=== PATIENT | female | born 1940 | race Caucasian/White ===

== ENCOUNTER 2016-04-19 11:04 | Emergency (ER) | payer MEDICARE ==
[2016-04-19 11:14] VITALS: RESP 16
--- NOTE | 2016-04-19 11:47 | ED ---
General Adult HPI - General Chief complaint: Altered Mental Status Stated complaint: altered mental status Time Seen by Provider: 04/19/16 11:10 Source: family, RN notes reviewed Mode of arrival: ambulatory Limitations: no limitations - History of Present Illness Initial comments: This is a 75-year-old female presents emergency Department with family. Patient herself is only alert and oriented 2 she does not think she needs to be her and she has no complaints. Family brings her in because they have noticed over the last few months her hygiene is deteriorating in the patient's more and more confused. At time she is talking but a dog that she does not have and another time she's talking about seeing her parents haven't been for 20 years. Family states that they moved her recently from her apartment to her son's house because her apartment was not being kept up at all and the hygiene was terrible. Patient has not complained about any physical complaints. However family states she gets very upset because she wants go back and live on her own at her apartment. - Related Data Previous Rx's Medication Instructions Recorded ALPRAZolam [Xanax] 0.25 mg PO TID PRN #15 tab 04/19/16 Allergies Allergy/AdvReac Type Severity Reaction Status Date / Time Penicillins Allergy Unknown Verified 04/19/16 12:07 Childhood Review of Systems ROS Statement: Those systems with pertinent positive or pertinent negative responses have been documented in the HPI. ROS Other: All systems not noted in ROS Statement are negative. Past Medical History Additional Past Medical History / Comment(s): Alzheimer's History of Any Multi-Drug Resistant Organisms: None Reported Past Surgical History: Joint Replacement Additional Past Surgical History / Comment(s): bilateral knee replacement Past Psychological History: No Psychological Hx Reported Smoking Status: Never smoker Past Alcohol Use History: None Reported Past Drug Use History: None Reported General Exam - General Exam Comments Initial Comments: GENERAL: Patient is well-developed and well-nourished. Patient is nontoxic and well- hydrated and is in no acute distress. ENT: Neck is soft and supple. No significant lymphadenopathy is noted. Oropharynx is clear. Moist mucous membranes. Neck has full range of motion without eliciting any pain. EYES: The sclera were anicteric and conjunctiva were pink and moist. Extraocular movements were intact and pupils were equal round and reactive to light. Eyelids were unremarkable. PULMONARY: Unlabored respirations. Good breath sounds bilaterally. No audible rales rhonchi or wheezing was noted. CARDIOVASCULAR: There is a regular rate and rhythm without any murmurs gallops or rubs. ABDOMEN: Soft and nontender with normal bowel sounds. No palpable organomegaly was noted. There is no palpable pulsatile mass. SKIN: Skin is clear with no lesions or rashes and otherwise unremarkable. NEUROLOGIC: Patient is alert and oriented 2. Cranial nerves II through XII are grossly intact. Motor and sensory are also intact. Normal speech, volume and content. Symmetrical smile. MUSCULOSKELETAL: Normal extremities with adequate strength and full range of motion. No lower extremity swelling or edema. No calf tenderness. LYMPHATICS: No significant lymphadenopathy is noted PSYCHIATRIC: Normal psychiatric evaluation. Limitations: no limitations Course Vital Signs 04/19/16 11:10 Temperature 96.9 F L Pulse Rate 92 Respiratory 16 Rate Blood Pressure 163/73 O2 Sat by Pulse 99 Oximetry Medical Decision Making - Medical Decision Making Family spoke with social work and had some ideas as to how to get some better care for the patient. They did ask for something to relax her so she's not so agitated all the time because she does not live in her apartment. - Lab Data Result diagrams: 04/19/16 11:55 04/19/16 11:55 Lab Results 04/19/16 04/19/16 04/19/16 Range/Units 11:25 11:55 11:55 WBC 6.7 (3.8-10.6) k/uL RBC 4.59 (3.80-5.40) m/uL Hgb 13.8 (11.4-16.0) gm/dL Hct 41.1 (34.0-46.0) % MCV 89.5 (80.0-100.0) fL MCH 30.1 (25.0-35.0) pg MCHC 33.6 (31.0-37.0) g/dL RDW 13.5 (11.5-15.5) % Plt Count 257 (150-450) k/uL Neutrophils % 78 % Lymphocytes % 13 % Monocytes % 5 % Eosinophils % 1 % Basophils % 0 % Neutrophils # 5.3 (1.3-7.7) k/uL Lymphocytes # 0.9 L (1.0-4.8) k/uL Monocytes # 0.3 (0-1.0) k/uL Eosinophils # 0.1 (0-0.7) k/uL Basophils # 0.0 (0-0.2) k/uL PT (9.0-12.0) sec INR (<1.1) APTT (22.0-30.0) sec Sodium (137-145) mmol/L Potassium (3.5-5.1) mmol/L Chloride (98-107) mmol/L Carbon Dioxide (22-30) mmol/L Anion Gap mmol/L BUN (7-17) mg/dL Creatinine (0.52-1.04) mg/dL Est GFR (MDRD) Af Amer (>60 ml/min/1.73 sqM) Est GFR (MDRD) Non-Af (>60 ml/min/1.73 sqM) Glucose (74-99) mg/dL POC Glucose (mg/dL) (75-99) mg/dL POC Glu Tree [employer]eller Operator ID Calcium (8.4-10.2) mg/dL Total Bilirubin (0.2-1.3) mg/dL AST (14-36) U/L ALT (9-52) U/L Alkaline Phosphatase (38-126) U/L Total Creatine Kinase 215 H (30-135) U/L CK-MB (CK-2) 3.0 H* (0.0-2.4) ng/mL CK-MB (CK-2) Rel Index 1.4 Troponin I <0.012 (0.000-0.034) ng/mL Total Protein (6.3-8.2) g/dL Albumin (3.5-5.0) g/dL Urine Color Yellow Urine Appearance Clear (Clear) Urine pH 6.0 (5.0-8.0) Ur Specific [place] 1.009 (1.001-1.035) Urine Protein Negative (Negative) Urine Glucose (UA) Negative (Negative) Urine Ketones Trace H (Negative) Urine Blood Trace H (Negative) Urine Nitrate Negative (Negative) Urine Bilirubin Negative (Negative) Urine Urobilinogen <2.0 (<2.0) mg/dL Ur Leukocyte Esterase Trace H (Negative) Urine RBC 2 (0-5) /hpf Urine WBC 3 (0-5) /hpf Ur Squamous Epith Cells 2 (0-4) /hpf Urine Opiates Screen Not Detected (NotDetected) Ur Oxycodone Screen Not Detected (NotDetected) Urine Methadone Screen Not Detected (NotDetected) Ur Propoxyphene Screen Not Detected (NotDetected) Ur Barbiturates Screen Not Detected (NotDetected) U Tricyclic Antidepress Not Detected (NotDetected) Ur Phencyclidine Scrn Not Detected (NotDetected) Ur Amphetamines Screen Not Detected (NotDetected) U Methamphetamines Scrn Not Detected (NotDetected) U Benzodiazepines Scrn Not Detected (NotDetected) Urine Cocaine Screen Not Detected (NotDetected) U Marijuana (THC) Screen Not Detected (NotDetected) 04/19/16 04/19/16 04/19/16 Range/Units 11:55 11:55 12:05 WBC (3.8-10.6) k/uL RBC (3.80-5.40) m/uL Hgb (11.4-16.0) gm/dL Hct (34.0-46.0) % MCV (80.0-100.0) fL MCH (25.0-35.0) pg MCHC (31.0-37.0) g/dL RDW (11.5-15.5) % Plt Count (150-450) k/uL Neutrophils % % Lymphocytes % % Monocytes % % Eosinophils % % Basophils % % Neutrophils # (1.3-7.7) k/uL Lymphocytes # (1.0-4.8) k/uL Monocytes # (0-1.0) k/uL Eosinophils # (0-0.7) k/uL Basophils # (0-0.2) k/uL PT 10.8 (9.0-12.0) sec INR 1.1 (<1.1) APTT 22.9 (22.0-30.0) sec Sodium 140 (137-145) mmol/L Potassium 4.3 (3.5-5.1) mmol/L Chloride 104 (98-107) mmol/L Carbon Dioxide 26 (22-30) mmol/L Anion Gap 10 mmol/L BUN 8 (7-17) mg/dL Creatinine 0.73 (0.52-1.04) mg/dL Est GFR (MDRD) Af Amer >60 (>60 ml/min/1.73 sqM) Est GFR (MDRD) Non-Af >60 (>60 ml/min/1.73 sqM) Glucose 134 H (74-99) mg/dL POC Glucose (mg/dL) 126 H (75-99) mg/dL POC Glu [employer] Operator Milagros Dobbins Calcium 9.5 (8.4-10.2) mg/dL Total Bilirubin 0.7 (0.2-1.3) mg/dL AST 28 (14-36) U/L ALT 38 (9-52) U/L Alkaline Phosphatase 84 (38-126) U/L Total Creatine Kinase (30-135) U/L CK-MB (CK-2) (0.0-2.4) ng/mL CK-MB (CK-2) Rel Index Troponin I (0.000-0.034) ng/mL Total Protein 7.5 (6.3-8.2) g/dL Albumin 4.3 (3.5-5.0) g/dL Urine Color Urine Appearance (Clear) Urine pH (5.0-8.0) Ur Specific [place] (1.001-1.035) Urine Protein (Negative) Urine Glucose (UA) (Negative) Urine Ketones (Negative) Urine Blood (Negative) Urine Nitrate (Negative) Urine Bilirubin (Negative) Urine Urobilinogen (<2.0) mg/dL Ur Leukocyte Esterase (Negative) Urine RBC (0-5) /hpf Urine WBC (0-5) /hpf Ur Squamous Epith Cells (0-4) /hpf Urine Opiates Screen (NotDetected) Ur Oxycodone Screen (NotDetected) Urine Methadone Screen (NotDetected) Ur Propoxyphene Screen (NotDetected) Ur Barbiturates Screen (NotDetected) U Tricyclic Antidepress (NotDetected) Ur Phencyclidine Scrn (NotDetected) Ur Amphetamines Screen (NotDetected) U Methamphetamines Scrn (NotDetected) U Benzodiazepines Scrn (NotDetected) Urine Cocaine Screen (NotDetected) U Marijuana (THC) Screen (NotDetected) Disposition Clinical Impression: Dementia Disposition: HOME SELF-CARE Instructions: Dementia (ED) Prescriptions: ALPRAZolam [Xanax] 0.25 mg PO TID PRN #15 tab PRN Reason: Anxiety Referrals: Nonstaff,Physician [Primary Care Provider] - 1-2 days Time of Disposition: 14:08
[2016-04-19 12:09] LABS: Glucose,Whole Blood 126 mg/dL (75-99)
[2016-04-19 12:13] LABS: Appearance,Urine Clear (Clear); Bilirubin,Urine Negative (Negative); Glucose,Urine (UA) Negative (Negative); Ketones,Urine Trace (Negative); Leukocyte Esterase,Urine Trace (Negative); Nitrite,Urine Negative (Negative); Particle Count 2795; Protein,Urine Negative (Negative); RBC,Urine 2 /hpf (0-5); Specific Gravity,Urine 1.009 (1.001-1.035); Squamous Epithelial Cell,Urine 2 /hpf (0-4); UA Billing (MACRO vs. MICRO) MICRO; Urobilinogen,Urine <2.0 mg/dL (<2.0); WBC,Urine 3 /hpf (0-5)
[2016-04-19 12:15] LABS: Basophils % (A) 0 %; CH 30.1; CHCM 33.8; Eosinophils # (A) 0.1 k/uL (0-0.7); Eosinophils % (A) 1 %; HCT 41.1 % (34.0-46.0); HDW 2.42; HGB 13.8 gm/dL (11.4-16.0); Luc % (Auto) 3; Lymphocytes # (A) 0.9 k/uL (1.0-4.8); Lymphocytes % (A) 13 %; MCH 30.1 pg (25.0-35.0); MCHC 33.6 g/dL (31.0-37.0); MCV 89.5 fL (80.0-100.0); Mean Platelet Volume 8.3; Monocytes # (A) 0.3 k/uL (0-1.0); Monocytes % (A) 5 %; Neutrophils # (A) 5.3 k/uL (1.3-7.7); Neutrophils % (A) 78 %; RBC 4.59 m/uL (3.80-5.40); RDW 13.5 % (11.5-15.5); WBC 6.7 k/uL (3.8-10.6); WBC (Perox) 6.84
[2016-04-19 12:22] LABS: ALT 38 U/L (9-52); AST 28 U/L (14-36); Alkaline Phosphatase 84 U/L (38-126); Anion Gap 10 mmol/L; Blood Urea Nitrogen 8 mg/dL (7-17); Calcium 9.5 mg/dL (8.4-10.2); Carbon Dioxide 26 mmol/L (22-30); Chloride 104 mmol/L (98-107); Glucose 134 mg/dL (74-99); Non-African American GFR(MDRD) >60 (>60 ml/min/1.73 sqM); Potassium 4.3 mmol/L (3.5-5.1); Sodium 140 mmol/L (137-145); Total Bilirubin 0.7 mg/dL (0.2-1.3); Total Protein 7.5 g/dL (6.3-8.2)
[2016-04-19 12:33] LABS: Creatine Kinase 215 U/L (30-135)
[2016-04-19 12:36] LABS: INR 1.1 (<1.1); Partial Thromboplastin Time 22.9 sec (22.0-30.0); Prothrombin Time 10.8 sec (9.0-12.0)
[2016-04-19 12:46] LABS: Troponin I <0.012 ng/mL (0.000-0.034)
--- NOTE | 2016-04-19 12:58 | CT ---
EXAMINATION TYPE: CT brain wo con DATE OF EXAM: 04/19/2016 12:46 PM COMPARISON: NONE INDICATION: Altered mental changes DLP: 1054.2 mGycm, Automated exposure control for dose reduction was used. CONTRAST: None CT of the brain is performed utilizing 3 mm thick sections through the posterior fossa and 3 mm thick sections through the remaining calvarium. Study is performed within 24 hours of arrival to the hosp [facility]. No abnormal hyperdensity is present to suggest an acute intracranial hemorrhage. No mass lesion is evident. No acute infarcts are evident. Ventricles and sulci are appropriate for the patient age. Paranasal sinuses and mastoid air cells within the [id number] are clear. There is hyperostosis frontalis internus, normal variant. IMPRESSIONS: 1. No acute intracranial process.
--- NOTE | 2016-04-19 13:55 | XR ---
EXAMINATION TYPE: XR chest 2V DATE OF EXAM: 04/19/2016 1:47 PM COMPARISON: NONE HISTORY: Altered mental status TECHNIQUE: Frontal and lateral views of the chest are obtained. FINDINGS: There is no focal air space opacity, pleural effusion, or pneumothorax seen. The cardiac silhouette size is within normal limits. There are overlying cardiac leads. There is a spinal curva ture. The osseous structures are intact. IMPRESSION: No acute cardiopulmonary process.
[2016-04-19 14:21] VITALS: BP 165/79; PULSE 72; TEMP 97
== END 2016-04-19 14:20 | disposition home or self-care (01) ==
LOC: EC 11:04
DX: G30.9 Alzheimer's disease, unspecified (principal); F02.80 Dementia in other diseases classified elsewhere, unspecified severity, without behavioral disturbance, psychotic disturbance, mood disturbance, and anxiety; Z88.0 Allergy status to penicillin
CPT/HCPCS: 36415; 70450; 71020; 80053; 80306; 81001; 82550; 82553; 84484; 85025; 85610; 85730; 93005; 99285

== ENCOUNTER 2016-07-08 19:53 | Observation (INO) | payer MEDICARE, OTHER ==
[2016-07-08] MEDS ORDERED: KETOROLAC 30 MG/ML 1 ML VIAL IVP STA (21:22)
--- NOTE | 2016-07-08 21:49 | ED ---
Altered Mental Status HPI - General Chief Complaint: Altered Mental Status Stated Complaint: dementia Time Seen by Provider: 07/08/16 21:22 Source: patient, family Mode of arrival: ambulatory Limitations: altered mental status (Probable dementia) - History of Present Illness Initial Comments: History comes to me through the triage personnel, as the patient's family is not bedside. This patient reportedly is been more agitated at home, at times confrontational with family, and reportedly trying to obtain the patient's son' s weapons (guns or knife). At the moment only the patient is here and she denies complaints. She states that she feels well. She denies any pain. She denies dyspnea. See the rest of the review of systems. The patient does state that she is here with her who "will probably lie about me." MD Complaint: confusion -: unknown Consistency of Symptoms: getting worse - Related Data Previous Rx's Medication Instructions Recorded ALPRAZolam [Xanax] 0.25 mg PO TID PRN #15 tab 04/19/16 Allergies Allergy/AdvReac Type Severity Reaction Status Date / Time Penicillins Allergy Unknown Verified 04/19/16 12:07 Childhood Review of Systems ROS Statement: Those systems with pertinent positive or pertinent negative responses have been documented in the HPI. ROS Other: All systems not noted in ROS Statement are negative. Limitations: ROS unobtainable due to patients medical condition (Probable dementia) Respiratory: Denies: cough, dyspnea Cardiovascular: Denies: chest pain Gastrointestinal: Denies: abdominal pain, vomiting Genitourinary: Denies: dysuria Musculoskeletal: Denies: back pain Neurological: Denies: headache Psychiatric: Denies: homicidal thoughts, suicidal thoughts Past Medical History Additional Past Medical History / Comment(s): Alzheimer's History of Any Multi-Drug Resistant Organisms: None Reported Past Surgical History: Joint Replacement Additional Past Surgical History / Comment(s): bilateral knee replacement Past Psychological History: No Psychological Hx Reported Smoking Status: Never smoker Past Alcohol Use History: None Reported Past Drug Use History: None Reported General Exam Limitations: altered mental status General appearance: alert, in no apparent distress Head exam: Present: atraumatic, normocephalic Eye exam: Present: normal appearance Neck exam: Present: normal inspection, full ROM Respiratory exam: Present: normal lung sounds bilaterally. Absent: respiratory distress, wheezes, rales, rhonchi, stridor Cardiovascular Exam: Present: regular rate, normal rhythm, normal heart sounds. Absent: systolic murmur, diastolic murmur, rubs, gallop GI/Abdominal exam: Present: soft. Absent: tenderness, guarding, rebound Extremities exam: Present: normal inspection, normal capillary refill. Absent: pedal edema, calf tenderness Back exam: Absent: CVA tenderness (R), CVA tenderness (L), vertebral tenderness Neurological exam: Present: alert, CN II-XII intact, normal gait. Absent: oriented X3 (Patient is alert and oriented to person and she recognizes she is in a health care facility. Was not able to state the date.), motor sensory deficit Psychiatric exam: Present: normal mood. Absent: agitated, anxious, homicidal ideation, suicidal ideation Skin exam: Present: warm, dry, intact, normal color. Absent: rash Course Vital Signs 07/08/16 07/08/16 20:06 23:01 Temperature 96.9 F L Pulse Rate 65 84 Respiratory 16 18 Rate Blood Pressure 131/67 155/66 O2 Sat by Pulse 97 97 Oximetry Medical Decision Making - Medical Decision Making Additional history obtained from the patient's son reveals that the patient appears to be coming more demented. He states that she has been wandering away at times while he is at work. The patient has not reportedly express any suicidal or homicidal ideation, but again he states that while he is out of the house knives will come up missing. He states that he has removed the guns from the home. He states that she is becoming more that he can care for and requests to see if the patient can be placed. - Lab Data Result diagrams: 07/08/16 21:58 07/08/16 21:58 Lab Results 07/08/16 07/08/16 07/08/16 Range/Units 21:58 21:58 21:58 WBC 8.8 (3.8-10.6) k/uL RBC 4.82 (3.80-5.40) m/uL Hgb 14.5 (11.4-16.0) gm/dL Hct 43.2 (34.0-46.0) % MCV 89.6 (80.0-100.0) fL MCH 30.2 (25.0-35.0) pg MCHC 33.6 (31.0-37.0) g/dL RDW 13.9 (11.5-15.5) % Plt Count 248 (150-450) k/uL Neutrophils % 78 % Lymphocytes % 13 % Monocytes % 6 % Eosinophils % 1 % Basophils % 0 % Neutrophils # 6.9 (1.3-7.7) k/uL Lymphocytes # 1.1 (1.0-4.8) k/uL Monocytes # 0.5 (0-1.0) k/uL Eosinophils # 0.1 (0-0.7) k/uL Basophils # 0.0 (0-0.2) k/uL Sodium 138 (137-145) mmol/L Potassium 4.0 (3.5-5.1) mmol/L Chloride 105 (98-107) mmol/L Carbon Dioxide 23 (22-30) mmol/L Anion Gap 10 mmol/L BUN 7 (7-17) mg/dL Creatinine 0.70 (0.52-1.04) mg/dL Est GFR (MDRD) Af Amer >60 (>60 ml/min/1.73 sqM) Est GFR (MDRD) Non-Af >60 (>60 ml/min/1.73 sqM) Glucose 119 H (74-99) mg/dL Calcium 9.6 (8.4-10.2) mg/dL Total Bilirubin 0.7 (0.2-1.3) mg/dL AST 22 (14-36) U/L ALT 30 (9-52) U/L Alkaline Phosphatase 82 (38-126) U/L Troponin I <0.012 (0.000-0.034) ng/mL Total Protein 6.8 (6.3-8.2) g/dL Albumin 4.1 (3.5-5.0) g/dL Urine Color Urine Appearance (Clear) Urine pH (5.0-8.0) Ur Specific [place] (1.001-1.035) Urine Protein (Negative) Urine Glucose (UA) (Negative) Urine Ketones (Negative) Urine Blood (Negative) Urine Nitrite (Negative) Urine Bilirubin (Negative) Urine Urobilinogen (<2.0) mg/dL Ur Leukocyte Esterase (Negative) Urine RBC (0-5) /hpf Urine WBC (0-5) /hpf Ur Squamous Epith Cells (0-4) /hpf Urine Bacteria (None) /hpf Urine Mucus (None) /hpf Urine Opiates Screen (NotDetected) Ur Oxycodone Screen (NotDetected) Urine Methadone Screen (NotDetected) Ur Propoxyphene Screen (NotDetected) Ur Barbiturates Screen (NotDetected) U Tricyclic Antidepress (NotDetected) Ur Phencyclidine Scrn (NotDetected) Ur Amphetamines Screen (NotDetected) U Methamphetamines Scrn (NotDetected) U Benzodiazepines Scrn (NotDetected) Urine Cocaine Screen (NotDetected) U Marijuana (THC) Screen (NotDetected) 07/08/16 Range/Units 22:15 WBC (3.8-10.6) k/uL RBC (3.80-5.40) m/uL Hgb (11.4-16.0) gm/dL Hct (34.0-46.0) % MCV (80.0-100.0) fL MCH (25.0-35.0) pg MCHC (31.0-37.0) g/dL RDW (11.5-15.5) % Plt Count (150-450) k/uL Neutrophils % % Lymphocytes % % Monocytes % % Eosinophils % % Basophils % % Neutrophils # (1.3-7.7) k/uL Lymphocytes # (1.0-4.8) k/uL Monocytes # (0-1.0) k/uL Eosinophils # (0-0.7) k/uL Basophils # (0-0.2) k/uL Sodium (137-145) mmol/L Potassium (3.5-5.1) mmol/L Chloride (98-107) mmol/L Carbon Dioxide (22-30) mmol/L Anion Gap mmol/L BUN (7-17) mg/dL Creatinine (0.52-1.04) mg/dL Est GFR (MDRD) Af Amer (>60 ml/min/1.73 sqM) Est GFR (MDRD) Non-Af (>60 ml/min/1.73 sqM) Glucose (74-99) mg/dL Calcium (8.4-10.2) mg/dL Total Bilirubin (0.2-1.3) mg/dL AST (14-36) U/L ALT (9-52) U/L Alkaline Phosphatase (38-126) U/L Troponin I (0.000-0.034) ng/mL Total Protein (6.3-8.2) g/dL Albumin (3.5-5.0) g/dL Urine Color Yellow Urine Appearance Cloudy H (Clear) Urine pH 5.5 (5.0-8.0) Ur Specific [place] 1.012 (1.001-1.035) Urine Protein Negative (Negative) Urine Glucose (UA) Negative (Negative) Urine Ketones Negative (Negative) Urine Blood Trace H (Negative) Urine Nitrite Negative (Negative) Urine Bilirubin Negative (Negative) Urine Urobilinogen <2.0 (<2.0) mg/dL Ur Leukocyte Esterase Large H (Negative) Urine RBC 3 (0-5) /hpf Urine WBC 13 H (0-5) /hpf Ur Squamous Epith Cells 2 (0-4) /hpf Urine Bacteria Few H (None) /hpf Urine Mucus Occasional H (None) /hpf Urine Opiates Screen Not Detected (NotDetected) Ur Oxycodone Screen Not Detected (NotDetected) Urine Methadone Screen Not Detected (NotDetected) Ur Propoxyphene Screen Not Detected (NotDetected) Ur Barbiturates Screen Not Detected (NotDetected) U Tricyclic Antidepress Not Detected (NotDetected) Ur Phencyclidine Scrn Not Detected (NotDetected) Ur Amphetamines Screen Not Detected (NotDetected) U Methamphetamines Scrn Not Detected (NotDetected) U Benzodiazepines Scrn Not Detected (NotDetected) Urine Cocaine Screen Not Detected (NotDetected) U Marijuana (THC) Screen Not Detected (NotDetected) Disposition Clinical Impression: Altered mental status Narrative: Probable dementia Disposition: ADMITTED IP TO THIS [facility] Condition: Poor Instructions: Altered Mental Status (ED) Referrals: Nonstaff,Physician [Primary Care Provider] - 1-2 days
--- NOTE | 2016-07-08 22:03 | XR ---
EXAMINATION TYPE: XR chest 1V portable DATE OF EXAM: 07/08/2016 COMPARISON: 04/19/2016 INDICATION: Altered mental status TECHNIQUE: Single frontal view of the chest is obtained. FINDINGS: The heart size is normal. The pulmonary vasculature is normal. The lungs are clear. IMPRESSION: 1. No acute pulmonary process.
[2016-07-08 22:11] LABS: Basophils % (A) 0 %; CH 30.3; CHCM 33.9; Eosinophils # (A) 0.1 k/uL (0-0.7); Eosinophils % (A) 1 %; HCT 43.2 % (34.0-46.0); HDW 2.52; HGB 14.5 gm/dL (11.4-16.0); Luc # (Auto) 0.16; Luc % (Auto) 2; Lymphocytes # (A) 1.1 k/uL (1.0-4.8); Lymphocytes % (A) 13 %; MCH 30.2 pg (25.0-35.0); MCHC 33.6 g/dL (31.0-37.0); MCV 89.6 fL (80.0-100.0); Monocytes # (A) 0.5 k/uL (0-1.0); Monocytes % (A) 6 %; Neutrophils # (A) 6.9 k/uL (1.3-7.7); Neutrophils % (A) 78 %; RBC 4.82 m/uL (3.80-5.40); RDW 13.9 % (11.5-15.5); WBC 8.8 k/uL (3.8-10.6); WBC (Perox) 8.65
[2016-07-08 22:23] LABS: ALT 30 U/L (9-52); AST 22 U/L (14-36); Alkaline Phosphatase 82 U/L (38-126); Anion Gap 10 mmol/L; Blood Urea Nitrogen 7 mg/dL (7-17); Calcium 9.6 mg/dL (8.4-10.2); Carbon Dioxide 23 mmol/L (22-30); Chloride 105 mmol/L (98-107); Glucose 119 mg/dL (74-99); Non-African American GFR(MDRD) >60 (>60 ml/min/1.73 sqM); Sodium 138 mmol/L (137-145); Total Bilirubin 0.7 mg/dL (0.2-1.3); Total Protein 6.8 g/dL (6.3-8.2)
[2016-07-08 22:33] LABS: Appearance,Urine Cloudy (Clear); Bacteria,Urine Few /hpf; Bilirubin,Urine Negative (Negative); Glucose,Urine (UA) Negative (Negative); Ketones,Urine Negative (Negative); Leukocyte Esterase,Urine Large (Negative); Mucus,Urine Occasional /hpf; Nitrite,Urine Negative (Negative); PH, Urine 5.5 (5.0-8.0); Particle Count 5287; Protein,Urine Negative (Negative); RBC,Urine 3 /hpf (0-5); Specific Gravity,Urine 1.012 (1.001-1.035); Squamous Epithelial Cell,Urine 2 /hpf (0-4); UA Billing (MACRO vs. MICRO) MICRO; Urobilinogen,Urine <2.0 mg/dL (<2.0); WBC,Urine 13 /hpf (0-5)
--- NOTE | 2016-07-08 22:35 | CT ---
EXAM: CT Head Without Intravenous Contrast CLINICAL HISTORY: Reason: altered mental status TECHNIQUE: Axial computed tomography images of the head/brain without intravenous contrast. CTDI is 60.3 mGy and DLP is 952.7 mGy-cm. This CT exam was performed using one or more of the following dose reduction techniques: automated exposure control, adjustment of the mA and/or kV according to patient size, and/or use of iterative reconstruction technique. COMPARISON: CT brain 04/19/2016 FINDINGS: Brain: Cerebral atrophy and mild chronic white matter ischemic changes. No evidence of acute cerebral infarction or intracranial hemorrhage. No abnormal extra-axial collections identified. Ventricles: Ventricles are of normal configuration without mass effect or midline shift. Bones/joints: There is calvarial hyperostosis and prominent dural calcification. Sinuses: Imaged paranasal and mastoid sinuses are clear. Mastoid air cells: See above. Other findings: No significant change since 04/19/2016. IMPRESSION: No evidence of acute intracranial abnormality.
[2016-07-08] MEDS ORDERED: NALOXONE 0.4 MG/ML 1 ML VIAL IV PRN (23:11)
[2016-07-08] MEDS ORDERED: MELATONIN 3 MG TABLET PO PRN (23:11)
[2016-07-08] MEDS ORDERED: ALPRAZolam 0.25 MG TAB PO PRN (23:13)
[2016-07-09 00:36] VITALS: BMI 34.2
[2016-07-09] MEDS: FAMOTIDINE 20 MG TAB PO SCH ×2 (07:50→21:03)
--- NOTE | 2016-07-09 17:35 | HP ---
DATE OF ADMISSION: Patient is a 76-year-old female with a history of dementia, has been worsening since 2 years, most probably has dementia, Alzheimer's type. Has been agitated recently and being paranoid, and patient started living with the son since her worsening dementia which has been getting even more worse and patient is becoming more confrontational, has been playing with sons gun and knife which he got from the house and patient is becoming unmanageable. Because of this, patient was brought to the hospital. Patient urinalysis looked a little bit abnormal, but patient does not have any symptoms of UTI. Patient has no increased confusion, this confusion is ongoing. Does not appear to be delirium and patient was subsequently admitted mostly for placement issues. Patient does not have any other signs or symptoms of sepsis at this point of time. REVIEW OF SYSTEMS: CONSTITUTIONAL: No fever, no malaise, no fatigue. HEENT: No recent visual problems or hearing problems. Denied any sore throat. CARDIOVASCULAR: No chest pain, orthopnea, PND, no palpitations, no syncope. PULMONARY: No shortness of breath, no cough, no hemoptysis. GASTROINTESTINAL: No diarrhea, no nausea, no vomiting, no abdominal pain. Normoactive bowel sounds. NEUROLOGICAL: As described in HPI. HEMATOLOGICAL: Denies any bleeding or petechiae. GENITOURINARY: Denies any burning micturition, frequency, or urgency. MUSCULOSKELETAL/RHEUMATOLOGICAL: Denies any joint pain, swelling, or any muscle pain. ENDOCRINE: Denies any polyuria or polydipsia. The rest of the 14 point review of systems is negative. Home medications include Xanax. ALLERGIES: Allergic to PENICILLIN. PAST MEDICAL HISTORY: Significant for possibly Alzheimer's dementia. Patient has had bilateral knee replacement. SOCIAL HISTORY: Denied any smoking, alcohol abuse or any drug abuse. Home medications include Nystatin topical and donepezil. PHYSICAL EXAMINATION: Temperature 96.4, pulse of 73, respiratory rate of 90, blood pressure 130/57, saturating at 96% on room air. GENERAL: Alert and oriented x1 to 2, which is her baseline. HEENT: Pupils are round and equally reacting to light. EOMI. No scleral icterus. No conjunctival pallor. Normocephalic, atraumatic. No pharyngeal erythema. No thyromegaly. CARDIOVASCULAR: S1 and S2 present. No murmurs, rubs, or gallops. PULMONARY: Chest is clear to auscultation, no wheezing or crackles. ABDOMEN: Soft, nontender, nondistended, normoactive bowel sounds. No palpable organomegaly. MUSCULOSKELETAL: No joint swelling or deformity. EXTREMITIES: No cyanosis, clubbing, or pedal edema. NEUROLOGICAL: Gross neurological examination did not reveal any focal deficits. SKIN: No rashes. LABORATORY DATA: CBC, CMP essentially within normal limits. UA cloudy appearance, trace blood, large leukocyte esterase. WBC 13, a few bacteria and mucus. ASSESSMENT AND PLAN: 1. Altered mental status. I do not believe patient has delirium. This is advance in dementia. Patient mostly has advanced dementia, will definitely require placement and although I do not believe patient has urinary tract infection at this point of time, I do not believe antibiotics will benefit. 2. Psychosis and paranoia, will use antipsychotics. This is related to her advanced dementia. Patient is on Aricept which will be continued, may not be much beneficial. 3. Asymptomatic bacteria, which does not warrant any antibiotics. Solar Installation Helper will evaluate her and possibility of discharge to senior living on Monday since weekend we are unable to do any of those at this time. Unable to place her at this time. Because of safety issues at home and son unable to manage, may not be appropriate to discharge the patient.
[2016-07-09] MEDS: NYSTATIN 100,000 UNIT/GM POWD 15 GM TOPICAL SCH (21:03)
[2016-07-09] MEDS: QUEtiapine 25 MG TAB PO PRN (21:36)
[2016-07-10] MEDS: NYSTATIN 100,000 UNIT/GM POWD 15 GM TOPICAL SCH ×2 (07:37→19:57)
[2016-07-10] MEDS: DONEPEZIL 10 MG TAB PO SCH (07:37)
[2016-07-10] MEDS: FAMOTIDINE 20 MG TAB PO SCH ×2 (07:37→19:56)
[2016-07-10] MEDS: QUEtiapine 25 MG TAB PO PRN (20:57)
--- NOTE | 2016-07-10 21:40 | PN ---
The patient is a bit confused and a bit agitated because of her forgetfulness. REVIEW OF SYSTEMS: CARDIOVASCULAR: No chest pain, no orthopnea, no PND, no palpitations. PULMONARY: Denied any shortness of breath. No cough or hemoptysis. GASTROINTESTINAL: No diarrhea, nausea or vomiting. No abdominal pain. Normoactive bowel sounds. NEUROLOGIC: No headaches, no weakness, no numbness. Medications were reviewed. PHYSICAL EXAMINATION: GENERAL: Temperature 97.4, pulse of 76, ( ), respiratory rate of 22, blood pressure 130/64, saturating at 99% on room air. GENERAL: The patient is alert and oriented x3, not in any acute distress. Well developed, well nourished. HEENT: Pupils are round and equally reacting to light. EOMI. No scleral icterus. No conjunctival pallor. Normocephalic, atraumatic. No pharyngeal erythema. No thyromegaly. CARDIOVASCULAR: S1 and S2 present. No murmurs, rubs, or gallops. PULMONARY: Chest is clear to auscultation, no wheezing or crackles. ABDOMEN: Soft, nontender, nondistended, normoactive bowel sounds. No palpable organomegaly. MUSCULOSKELETAL: No joint swelling or deformity. EXTREMITIES: No cyanosis, clubbing, or pedal edema. NEUROLOGICAL: As mentioned above, confused, alert and oriented x1 to 2. No other focal neurological deficits were appreciated. SKIN: No rashes. LABORATORY DATA: None available from today. ASSESSMENT: 1. Altered mental status due to advancing dementia. Patient does not have any delirium at this point of time. Placement into subacute rehabilitation or [facility] tomorrow. 2. 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 3. ( ) bacteria which does not warrant any antibiotics.
[2016-07-11 07:44] VITALS: BP 137/68; PULSE 68; RESP 18; TEMP 97
[2016-07-11] MEDS: DONEPEZIL 10 MG TAB PO SCH (09:09)
[2016-07-11] MEDS: FAMOTIDINE 20 MG TAB PO SCH (09:09)
[2016-07-11] MEDS: NYSTATIN 100,000 UNIT/GM POWD 15 GM TOPICAL SCH (09:09)
--- NOTE | 2016-07-11 11:47 | DS ---
DATE OF ADMISSION: 07/08/2016 DATE OF DISCHARGE: Patient is admitted for mostly placement issue, as patient's sone is unable to take care of her at home. Patient appears to have Alzheimer's dementia, appears to be advanced and with a recent psychotic episode and we can use Seroquel for psychosis and avoid benzodiazepines, barbiturates, opiates and anti-cholangitic medications due to her severe dementia and patient was paranoid apparently. Patient does not have any signs or symptoms of infection at this point of time. Patient's mental status issues are secondary to worsening dementia. Patient will be discharged today to group home or long-term facility and patient will be discharged today and patient may have a little bit of dehydration which improved with IV fluids. Patient was seen and examined on the day of discharge. Vitals are stable. PHYSICAL EXAMINATION: GENERAL EXAMINATION: Alert and oriented x1 to 2, patient is quite agitated as her son dropped her off here. HEENT: Pupils are round and equally reacting to light. EOMI. No scleral icterus. No conjunctival pallor. Normocephalic, atraumatic. No pharyngeal erythema. No thyromegaly. CARDIOVASCULAR: S1 and S2 present. No murmurs, rubs, or gallops. PULMONARY: Chest is clear to auscultation, no wheezing or crackles. ABDOMEN: Soft, nontender, nondistended, normoactive bowel sounds. No palpable organomegaly. MUSCULOSKELETAL: No joint swelling or deformity. EXTREMITIES: No cyanosis, clubbing, or pedal edema. NEUROLOGICAL: Gross neurological examination did not reveal any focal deficits. SKIN: No rashes. FINAL DIAGNOSES: 1. Altered mental status due to worsening dementia without any significant delirium. 2. Psychosis and paranoia secondary to advanced stages of dementia. 3. Asymptomatic bacteria for which patient will not require any antibiotics. Patient will be discharged today to long-term facility. DISCHARGE DIET: Regular. Activity as tolerated. Follow up with the physician in the facility, Dr. Loredo or Dr. Chavira. Spent greater than 35 minutes in total discharge process.
== END 2016-07-11 15:16 ==
LOC: EC 19:53 → SUPCPDRO 19:53 → 4MS4W 23:11
PROVIDERS: ADMIT Internal Medicine; ATTEND Internal Medicine
DX: F22 Delusional disorders (principal); G30.9 Alzheimer's disease, unspecified; F02.80 Dementia in other diseases classified elsewhere, unspecified severity, without behavioral disturbance, psychotic disturbance, mood disturbance, and anxiety; Z88.0 Allergy status to penicillin
CPT/HCPCS: 99285; 36415; 80053; 84484; 85025; 81001; 80306; 71010; 70450; G0378 ×4

== ENCOUNTER 2018-12-20 05:31 | Emergency (ER) | payer MEDICARE, OTHER ==
--- NOTE | 2018-12-20 05:52 | ED ---
General Adult HPI - General Chief complaint: Fall Stated complaint: Fall Time Seen by Provider: 12/20/18 05:37 Source: patient, EMS Mode of arrival: EMS - History of Present Illness Initial comments: Yahaira is a pleasantly demented 78-year-old female who was sent to the emergency department today from [facility] for evaluation of an unwitnessed fall. The patient has dementia at baseline and is confused, she is a very poor historian. Apparently the patient walked out of her room and reported to staff that she had fallen. No one saw or heard the fall. The patient had no evidence of trauma or injury. Patient complained of no injury. Because the fall was unwitnessed they sent her to the emergency department for evaluation. - Related Data Home Medications Medication Instructions Recorded Confirmed Donepezil [Aricept] 10 mg PO QAM 07/08/16 07/08/16 Nystatin 100,000 Unit/gm Powd 1 applic TOPICAL BID 07/08/16 07/08/16 [Mycostatin Powder] Previous Rx's Medication Instructions Recorded QUEtiapine [SEROquel] 25 mg PO HS PRN #30 tab 07/11/16 Allergies Allergy/AdvReac Type Severity Reaction Status Date / Time Penicillins Allergy Unknown Verified 07/08/16 23:20 Childhood Review of Systems ROS Statement: Those systems with pertinent positive or pertinent negative responses have been documented in the HPI. ROS Other: All systems not noted in ROS Statement are negative. Past Medical History Additional Past Medical History / Comment(s): Alzheimer's History of Any Multi-Drug Resistant Organisms: None Reported Past Surgical History: Joint Replacement Additional Past Surgical History / Comment(s): bilateral knee replacement Past Anesthesia/Blood Transfusion Reactions: No Reported Reaction Past Psychological History: No Psychological Hx Reported Smoking Status: Never smoker Past Alcohol Use History: None Reported Past Drug Use History: None Reported - Past Family History Father History Unknown: Yes Mother History Unknown: Yes General Exam - General Exam Comments Initial Comments: Physical Exam GENERAL: Patient is well-developed and well-nourished. Patient is nontoxic and well-hydrated and is in no distress. HENT: Normocephalic, Atraumatic. No mcdaniel signs no raccoon eyes No signs of trauma EYES: PERRL, EOMI PULMONARY: Unlabored respirations. No audible rales rhonchi or wheezing was noted. CARDIOVASCULAR: There is a regular rate and rhythm without any murmurs gallops or rubs. ABDOMEN: Soft and nontender with normal bowel sounds. SKIN: Skin is clear with no lesions or rashes and otherwise unremarkable. : Deferred NEUROLOGIC: Patient is alert and oriented x1. Moving all extremities spontaneously MUSCULOSKELETAL: Normal extremities with adequate strength and full range of motion. PSYCHIATRIC: Pleasantly demented Course Vital Signs 12/20/18 12/20/18 05:40 06:57 Temperature 97.5 F L 97.4 F L Pulse Rate 63 66 Respiratory 18 18 Rate Blood Pressure 134/58 139/60 O2 Sat by Pulse 93 L 95 Oximetry Medical Decision Making - Medical Decision Making Patient was seen and evaluated history is obtained primarily from staff at senior living as well as EMS. Patient had an unwitnessed fall dosing here for CT evaluation Urinalysis no signs of urinary tract infection, head CT with no acute findings. This time patient is at her baseline and is stable for discharge back to snf facility. - Lab Data Lab Results 12/20/18 Range/Units 06:09 Urine Color Yellow Urine Appearance Clear (Clear) Urine pH 5.5 (5.0-8.0) Ur Specific [employer] 1.014 (1.001-1.035) Urine Protein Negative (Negative) Urine Glucose (UA) Negative (Negative) Urine Ketones Negative (Negative) Urine Blood Negative (Negative) Urine Nitrite Negative (Negative) Urine Bilirubin Negative (Negative) Urine Urobilinogen <2.0 (<2.0) mg/dL Ur Leukocyte Esterase Trace H (Negative) Urine RBC 1 (0-5) /hpf Urine WBC 1 (0-5) /hpf Ur Squamous Epith Cells 1 (0-4) /hpf Urine Mucus Rare H (None) /hpf Disposition Clinical Impression: Fall Disposition: HOME SELF-CARE Condition: Stable Instructions (If sedation given, give patient instructions): Fall Prevention (ED) Is patient prescribed a controlled substance at d/c from ED?: No Referrals: None,Stated [Primary Care Provider] - 1-2 days
[2018-12-20 06:22] LABS: Appearance,Urine Clear (Clear); Bilirubin,Urine Negative (Negative); Blood,Urine Negative (Negative); Color,Urine Yellow; Glucose,Urine (UA) Negative (Negative); Ketones,Urine Negative (Negative); Leukocyte Esterase,Urine Trace (Negative); Mucus,Urine Rare /hpf; Nitrite,Urine Negative (Negative); PH, Urine 5.5 (5.0-8.0); Protein,Urine Negative (Negative); RBC,Urine 1 /hpf (0-5); Specific Gravity,Urine 1.014 (1.001-1.035); Squamous Epithelial Cell,Urine 1 /hpf (0-4); Urobilinogen,Urine <2.0 mg/dL (<2.0)
--- NOTE | 2018-12-20 06:43 | CT ---
EXAM: CT Head Without Intravenous Contrast CLINICAL HISTORY: ITS.REASON CT Reason: falls, unwitnessed, dementia TECHNIQUE: Axial computed tomography images of the head/brain without intravenous contrast. CTDI is 45.2 mGy and DLP is 963.4 mGy-cm. This CT exam was performed using one or more of the following dose reduction techniques: automated exposure control, adjustment of the mA and/or kV according to patient size, and/or use of iterative reconstruction technique. COMPARISON: CT 07/08/16. FINDINGS: Brain: No hemorrhage. No acute cortical infarct. No mass effect or midline shift. Involutional changes and small vessel disease. Ventricles: Unremarkable. Bones/joints: No acute fracture. Soft tissues: Unremarkable. Sinuses: Mild sinus disease. Mastoid air cells: Unremarkable as visualized. IMPRESSION: No acute intracranial process. EXAM: CT Cervical Spine Without Intravenous Contrast CLINICAL HISTORY: ITS.REASON CT Reason: falls, unwitnessed, dementia TECHNIQUE: Axial computed tomography images of the cervical spine without intravenous contrast. CTDI is 19.9 mGy and DLP is 520.5 mGy-cm. This CT exam was performed using one or more of the following dose reduction techniques: automated exposure control, adjustment of the mA and/or kV according to patient size, and/or use of iterative reconstruction technique. COMPARISON: No relevant prior studies available. FINDINGS: Vertebrae: No acute fracture. Discs/spinal canal/neural foramina: Degenerative changes. Soft tissues: Unremarkable. Thyroid: Thyroid calcifications. IMPRESSION: 1. No acute fracture. 2. Thyroid calcifications. Nonemergent ultrasound may be considered if indicated.
[2018-12-20 06:58] VITALS: TEMP 97.4
[2018-12-20 07:48] VITALS: BP 139/68; PULSE 76; RESP 16
== END 2018-12-20 07:51 | disposition home or self-care (01) ==
LOC: EC 05:31
DX: Z04.3 Encounter for examination and observation following other accident (principal); G30.9 Alzheimer's disease, unspecified; F02.80 Dementia in other diseases classified elsewhere, unspecified severity, without behavioral disturbance, psychotic disturbance, mood disturbance, and anxiety; Z88.0 Allergy status to penicillin; Z79.899 Other long term (current) drug therapy; W19.XXXA Unspecified fall, initial encounter
CPT/HCPCS: 51701; 70450; 72125; 81001; 99284

== ENCOUNTER 2019-09-09 12:20 | Emergency (ER) | payer MEDICARE, OTHER ==
--- NOTE | 2019-09-09 12:23 | ED ---
Fall HPI - General Stated Complaint: Fall Time Seen by Provider: 09/09/19 12:22 - History of Present Illness Initial Comments: Patient is a 79-year-old female with history of also has dementia presenting to emergency Department with a chief complaint fall. Patient brought to ED via EMS. Patient lives in [facility] where the staff on the patient on the floor about 5 minutes prior to left or there. I spoke with the nurse from the facility who states that is only requesting CT of the brain to rule out any potential injuries. Patient did not have a c-collar when brought to the ED. Patient is alert to self but not time or place. Patient denies any pain anywhere. - Related Data Home Medications Medication Instructions Recorded Confirmed Donepezil [Aricept] 10 mg PO DAILY@0900 07/08/16 09/09/19 ALPRAZolam [Xanax] 0.25 mg PO TID@0900,1500,2100 09/09/19 09/09/19 Acetaminophen [Tylenol 8 Hour] 650 mg PO Q4H PRN 09/09/19 09/09/19 Cholecalciferol [Vitamin D3 (25 2,000 unit PO DIRECTED 09/09/19 09/09/19 Mcg = 1000 Iu)] Clotrimazole/Betamethasone Dip 1 applic TOPICAL Q12H PRN 09/09/19 09/09/19 [Lotrisone Cream] Ergocalciferol (Vitamin D2) 50,000 unit PO FR@0909/09/19 09/09/19 [Drisdol] QUEtiapine [SEROquel] 25 mg PO BID@0900,2100 09/09/19 09/09/19 metFORMIN HCL ER [Glucophage Xr] 500 mg PO DAILY@0900 09/09/19 09/09/19 Allergies Allergy/AdvReac Type Severity Reaction Status Date / Time Penicillins Allergy Unknown Verified 09/09/19 12:46 Childhood Review of Systems ROS Statement: Those systems with pertinent positive or pertinent negative responses have been documented in the HPI. ROS Other: All systems not noted in ROS Statement are negative. Past Medical History Additional Past Medical History / Comment(s): Alzheimer's History of Any Multi-Drug Resistant Organisms: None Reported Past Surgical History: Joint Replacement Additional Past Surgical History / Comment(s): bilateral knee replacement Past Anesthesia/Blood Transfusion Reactions: No Reported Reaction Past Psychological History: No Psychological Hx Reported Past Alcohol Use History: None Reported Past Drug Use History: None Reported - Past Family History Father History Unknown: Yes Mother History Unknown: Yes General Exam Limitations: no limitations General appearance: alert, in no apparent distress Head exam: Present: atraumatic (No signs of trauma to the head or neck.), normocephalic, normal inspection. Absent: other (Negative Alegria sign, negative raccoon's, negative hemotympanum.) Eye exam: Present: normal appearance, PERRL, EOMI Pupils: Present: normal accommodation ENT exam: Present: normal exam, normal oropharynx, mucous membranes moist, TM's normal bilaterally, normal external ear exam Neck exam: Present: normal inspection, full ROM. Absent: tenderness Respiratory exam: Present: normal lung sounds bilaterally. Absent: respiratory distress, wheezes Cardiovascular Exam: Present: regular rate, normal rhythm, normal heart sounds Extremities exam: Present: normal inspection, full ROM, normal capillary refill, other (+2 ulnar and radial pulses bilateral.). Absent: tenderness Back exam: Present: normal inspection, full ROM. Absent: tenderness, CVA tenderness (R), CVA tenderness (L) Neurological exam: Present: alert, oriented X3, CN II-XII intact, normal gait Psychiatric exam: Present: normal affect, normal mood Skin exam: Present: warm, dry, intact, normal color Course Vital Signs 09/09/19 12:24 Temperature 98.2 F Pulse Rate 66 Respiratory 18 Rate Blood Pressure 128/54 O2 Sat by Pulse 100 Oximetry Medical Decision Making - Medical Decision Making Patient is a 79-year-old female with history of also dementia presenting to emergency Department with chief complaint of fall. sent patient to obtain a computed tomography scan only. I spoke to the nurse who called from the request. Date do not want any laboratory work. On exam I did not find any trauma to the head. Patient did not have c-collar on arrival. CT of the brain and C-spine was unremarkable. Patient to return to [facility]. Advised to follow with primary care. Return parameters discussed. Case discussed with physician. Disposition Clinical Impression: Fall Disposition: HOME SELF-CARE Condition: Stable Instructions (If sedation given, give patient instructions): Fall Prevention (ED) Additional Instructions: Follow with her primary care. Return to emergency department if symptoms worsen. Is patient prescribed a controlled substance at d/c from ED?: No Referrals: Cale Chavira MD [Primary Care Provider] - 1-2 days Time of Disposition: 13:45
[2019-09-09 12:30] VITALS: RESP 18; TEMP 98.2
--- NOTE | 2019-09-09 13:24 | CT ---
EXAMINATION TYPE: CT brain brady singer DATE OF EXAM: 09/09/2019 COMPARISON: 12/20/2018 HISTORY: Patient poor historian CT DLP: [address] of the brain was performed. The ventricles, basal cisterns and sulci overlying the cerebral convexities demonstrate mild/moderate enlargement. There is no evidence for intracranial hemorrhage or sulcal effacement. There is decreased attenuatio n about the periventricular white matter and deep white matter of both cerebral hemispheres, compatib le with chronic small vessel ischemia. No mass effects are seen. If symptoms persist consider MRI. Osseous calvarium is intact. IMPRESSION: 1. Age related atrophic and chronic small vessel ischemic change without acute intracranial process seen at this time. CT Cervical Spine: Unenhanced CT of the cervical spine was performed with bone and soft tissue window settings submitted . Coronal and sagittal reconstruction is obtained. There is normal alignment and prevertebral soft tissues. No evidence for acute cervical fracture . Scattered degenerative disc disease and spondylosis. Biapical scarring. IMPRESSION: 1. No evidence for acute fracture or subluxation of the cervical spine.
[2019-09-09 13:51] VITALS: BP 132/61; PULSE 65
== END 2019-09-09 14:00 | disposition home or self-care (01) ==
LOC: EC 12:20
DX: Z04.3 Encounter for examination and observation following other accident (principal); G30.9 Alzheimer's disease, unspecified; F02.80 Dementia in other diseases classified elsewhere, unspecified severity, without behavioral disturbance, psychotic disturbance, mood disturbance, and anxiety; E11.9 Type 2 diabetes mellitus without complications; Z79.84 Long term (current) use of oral hypoglycemic drugs; Z79.899 Other long term (current) drug therapy; Z88.0 Allergy status to penicillin; Z96.653 Presence of artificial knee joint, bilateral; W01.10XA Fall on same level from slipping, tripping and stumbling with subsequent striking against unspecified object, initial encounter; Y93.89 Activity, other specified; Y92.89 Other specified places as the place of occurrence of the external cause
CPT/HCPCS: 70450; 72125; 99284

== ENCOUNTER 2020-11-25 09:21 | Inpatient (IN) | payer MEDICARE, OTHER ==
[2020-11-25 09:27] VITALS: BP 122/65; PULSE 80; TEMP 96.8
[2020-11-25 09:48] VITALS: RESP 20
--- NOTE | 2020-11-25 10:03 | ED ---
General Adult HPI - General Chief complaint: Shortness of Breath Stated complaint: Abnormal Labs Time Seen by Provider: 11/25/20 09:44 Source: patient, family Mode of arrival: wheelchair Limitations: no limitations - History of Present Illness Initial comments: Dictation was produced using [employer] dictation software. please excuse any grammatical, word or spelling errors. Chief Complaint: 80-year-old female presents with elevated d-dimer History of Present Illness: Is an 80-year-old female. She has history of dementia. She is accompanied by family member who provides most of the history of present illness. She's been worked up outpatient by her primary care doctor for shortness of breath. She had blood work done. Today she was found to have an elevated d-dimer measuring 1.05. Dr. Chavira told patient's son to bring her t o the emergency department. Patient denies any shortness of breath. She is however poor historian. Son at the bedside reports that patient did complain of some dyspnea. Patient has any lower extremity pain. No popliteal knee pain she does not take any anticoagulation medications. No history of blood clots. The ROS documented in this emergency department record has been reviewed and confirmed by me. Those systems with pertinent positive or negative responses have been documented in the HPI. All other systems are other negative and/or noncontributory. PHYSICAL EXAM: General Impression: Alert and oriented x3, not in acute distress HEENT: Normocephalic atraumatic, extra-ocular movements intact, pupils equal and reactive to light bilaterally, mucous membranes moist. Cardiovascular: Heart regular rate and rhythm Chest: Able to complete full sentences, no retractions, no tachypnea Abdomen: abdomen soft, non-tender, non-distended, no organomegaly Musculoskeletal: Pulses present and equal in all extremities, no peripheral edema Motor: no focal deficits noted Neurological: CN II-XII grossly intact, no focal motor or sensory deficits noted Skin: Intact with no visualized rashes Psych: Normal affect and mood ED course: 80-year-old female presents with elevated d-dimer. D-dimer was ordered by primary care doctor for workup of shortness of breath. Signs upon arrival are within acceptable limits. Laboratory evaluation obtained. CBC, coag panel, metabolic panel is unremarkab le. Troponins negative. CT angios limited due to artifact but there is concern for small pulmonary emboli in the second and third ranches of the right lung. Patient started heparin. She is reevaluated at bedside 11:35 AM found to be in stable medical condition. Patient will be admitted to [facility] hospitalist group with consultation to pulmonology. EKG interpretation: Ventricular rate 73, normal sinus rhythm,. Interval 174, QRS 70, QTC 429. No [place] prolongation, no QTC prolongation, no ST or T-wave changes noted. Overall, this EKG is unremarkable - Related Data Home Medications Medication Instructions Recorded Confirmed Donepezil [Aricept] 10 mg PO DAILY@0900 07/08/16 09/09/19 ALPRAZolam [Xanax] 0.25 mg PO TID@0900,1500,209909/09/19 09/09/19 Acetaminophen [Tylenol 8 Hour] 650 mg PO Q4H PRN 09/09/19 09/09/19 Cholecalciferol [Vitamin D3 (25 2,000 unit PO DIRECTED 09/09/19 09/09/19 Mcg = 1000 Iu)] Clotrimazole/Betamethasone Dip 1 applic TOPICAL Q12H PRN 09/09/19 09/09/19 [Lotrisone Cream] Ergocalciferol (Vitamin D2) 50,000 unit PO FR@0909/09/19 09/09/19 [Drisdol] QUEtiapine [SEROquel] 25 mg PO BID@0900,2100 09/09/19 09/09/19 metFORMIN HCL ER [Glucophage Xr] 500 mg PO DAILY@0900 09/09/19 09/09/19 Allergies Allergy/AdvReac Type Severity Reaction Status Date / Time Penicillins Allergy Unknown Verified 11/25/20 09:27 Childhood Review of Systems ROS Statement: Those systems with pertinent positive or pertinent negative responses have been documented in the HPI. ROS Other: All systems not noted in ROS Statement are negative. Past Medical History Past Medical History: Dementia, Diabetes Mellitus Additional Past Medical History / Comment(s): Alzheimer's History of Any Multi-Drug Resistant Organisms: None Reported Past Surgical History: Joint Replacement Additional Past Surgical History / Comment(s): bilateral knee replacement Past Anesthesia/Blood Transfusion Reactions: No Reported Reaction Past Psychological History: No Psychological Hx Reported Smoking Status: Never smoker Past Alcohol Use History: None Reported Past Drug Use History: None Reported - Past Family History Father History Unknown: Yes Mother History Unknown: Yes General Exam Limitations: no limitations Course Vital Signs 11/25/20 11/25/20 09:21 09:47 Temperature 96.8 F L Pulse Rate 80 Respiratory 18 20 Rate Blood Pressure 122/65 Medical Decision Making - Lab Data Result diagrams: 11/25/20 10:01 11/25/20 10:02 Lab Results 11/25/20 11/25/20 11/25/20 Range/Units 10: 10: 10:01 WBC 5.1 (3.8-10.6) k/uL RBC 4.38 (3.80-5.40) m/uL Hgb 12.8 (11.4-16.0) gm/dL Hct 39.1 (34.0-46.0) % MCV 89.2 (80.0-100.0) fL MCH 29.3 (25.0-35.0) pg MCHC 32.9 (31.0-37.0) g/dL RDW 15.0 (11.5-15.5) % Plt Count 215 (150-450) k/uL MPV 9.5 Neutrophils % 67 % Lymphocytes % 19 % Monocytes % 7 % Eosinophils % 3 % Basophils % 1 % Neutrophils # 3.4 (1.3-7.7) k/uL Lymphocytes # 1.0 (1.0-4.8) k/uL Monocytes # 0.4 (0-1.0) k/uL Eosinophils # 0.2 (0-0.7) k/uL Basophils # 0.0 (0-0.2) k/uL PT 10.2 (9.0-12.0) sec INR 0.9 (<1.2) APTT 20.0 L (22.0-30.0) sec Sodium (137-145) mmol/L Potassium (3.5-5.1) mmol/L Chloride (98-107) mmol/L Carbon Dioxide (22-30) mmol/L Anion Gap mmol/L BUN (7-17) mg/dL Creatinine (0.52-1.04) mg/dL Est GFR (CKD-EPI)AfAm (>60 ml/min/1.73 sqM) Est GFR (CKD-EPI)NonAf (>60 ml/min/1.73 sqM) Glucose (74-99) mg/dL Calcium (8.4-10.2) mg/dL Troponin I <0.012 (0.000-0.034) ng/mL NT-Pro-B Natriuret Pep pg/mL 11/25/20 11/25/20 Range/Units 10:01 10:02 WBC (3.8-10.6) k/uL RBC (3.80-5.40) m/uL Hgb (11.4-16.0) gm/dL Hct (34.0-46.0) % MCV (80.0-100.0) fL MCH (25.0-35.0) pg MCHC (31.0-37.0) g/dL RDW (11.5-15.5) % Plt Count (150-450) k/uL MPV Neutrophils % % Lymphocytes % % Monocytes % % Eosinophils % % Basophils % % Neutrophils # (1.3-7.7) k/uL Lymphocytes # (1.0-4.8) k/uL Monocytes # (0-1.0) k/uL Eosinophils # (0-0.7) k/uL Basophils # (0-0.2) k/uL PT (9.0-12.0) sec INR (<1.2) APTT (22.0-30.0) sec Sodium 137 (137-145) mmol/L Potassium 4.2 (3.5-5.1) mmol/L Chloride 105 (98-107) mmol/L Carbon Dioxide 22 (22-30) mmol/L Anion Gap 10 mmol/L BUN 13 (7-17) mg/dL Creatinine 0.71 (0.52-1.04) mg/dL Est GFR (CKD-EPI)AfAm >90 (>60 ml/min/1.73 sqM) Est GFR (CKD-EPI)NonAf 81 (>60 ml/min/1.73 sqM) Glucose 189 H (74-99) mg/dL Calcium 9.3 (8.4-10.2) mg/dL Troponin I (0.000-0.034) ng/mL NT-Pro-B Natriuret Pep 62 pg/mL Critical Care Time Critical Care Time: Yes Total Critical Care Time: 33 Disposition Clinical Impression: Pulmonary emboli Disposition: ADMITTED IP TO THIS HOSP Condition: Fair Referrals: Cale Chavira MD [Primary Care Provider] - 1-2 days
[2020-11-25 10:15] LABS: Basophils % (A) 1 %; Eosinophils # (A) 0.2 k/uL (0-0.7); Eosinophils % (A) 3 %; HCT 39.1 % (34.0-46.0); HGB 12.8 gm/dL (11.4-16.0); Lymphocytes % (A) 19 %; MCH 29.3 pg (25.0-35.0); MCHC 32.9 g/dL (31.0-37.0); MCV 89.2 fL (80.0-100.0); Mean Platelet Volume 9.5; Monocytes # (A) 0.4 k/uL (0-1.0); Monocytes % (A) 7 %; Neutrophils # (A) 3.4 k/uL (1.3-7.7); Neutrophils % (A) 67 %; Platelet Count 215 k/uL (150-450); RBC 4.38 m/uL (3.80-5.40); WBC 5.1 k/uL (3.8-10.6)
[2020-11-25 10:32] LABS: African American GFR (CKD) >90 (>60 ml/min/1.73 sqM); Anion Gap 10 mmol/L; Blood Urea Nitrogen 13 mg/dL (7-17); Calcium 9.3 mg/dL (8.4-10.2); Carbon Dioxide 22 mmol/L (22-30); Chloride 105 mmol/L (98-107); Glucose 189 mg/dL (74-99); Non-African American GFR(CKD) 81 (>60 ml/min/1.73 sqM); Potassium 4.2 mmol/L (3.5-5.1); Sodium 137 mmol/L (137-145)
[2020-11-25 10:34] LABS: INR 0.9 (<1.2); Prothrombin Time 10.2 sec (9.0-12.0)
--- NOTE | 2020-11-25 11:24 | CT ---
EXAMINATION TYPE: CT angio chest DATE OF EXAM: 11/25/2020 11:13 AM COMPARISON: None HISTORY: Elevated Ddimer CT DLP: 980.1 mGycm Automated exposure control for dose reduction was used. CONTRAST: CTA scan of the thorax is performed with IV Contrast, patient injected with 138 mL of Isovue 370, pul monary embolism protocol. . FINDINGS: Exam is limited by respiratory motion. LUNGS: Evaluation limited due to motion artifact. There is no obvious pneumothorax. Subsegmental area s of consolidation could be on the basis of respiratory motion atelectasis. No obvious sizable pleura l effusion. MEDIASTINUM: There is suboptimal enhancement of the pulmonary arteries and there is diffuse artifact. There does appear to be nonfilling of distal branches of the pulmonary arteries bilaterally greater on the right. Additionally there is a suggestion of a filling defect within the pulmonary arterial br anch on axial image 55 suspicious for pulmonary embolism. Exam is nearly nondiagnostic due to the qiana unt of artifact. Additionally, there is a low density seen within the secondary branch of the right u pper lobe pulmonary artery on axial image 38 through 35. Distal branch pulmonary nodules are not excl uded bilaterally. Aorta of normal caliber. Heart size is prominent. Assessment for adenopathy limited. OTHER: Artifact along the dome of the liver limits its evaluation. There is a suggestion of a 1.5 cm hepatic dome lesion which is indeterminate by this current exam could be correlated with ultrasound. Hypertrophic and degenerative changes of the spine. IMPRESSION: 1. Severely limited exam due to severe artifact. There is suboptimal enhancement the pulmonary arteri es. However findings are suspicious for a right-sided secondary and tertiary branch pulmonary embolis m as discussed above. 2. Indeterminate hepatic dome lesion due to artifact
[2020-11-25] MEDS ORDERED: HEPARIN SODIUM 1,000 UN/ML (10ML VL) IV PRN (11:29)
[2020-11-25] MEDS ORDERED: HEPARIN SODIUM 1,000 UN/ML (10ML VL) IV ONE (11:29)
[2020-11-25] MEDS ORDERED: HEPARIN SOD,PORK IN 0.45% NACL 25,000 UNIT in 0.45% NACL 1 250ML.BAG IV SCH (11:30)
[2020-11-25] MEDS ORDERED: NALOXONE 0.4 MG/ML 1 ML VIAL IV PRN (11:37)
[2020-11-25] MEDS ORDERED: ACETAMINOPHEN TAB 325 MG TAB PO PRN (11:37)
[2020-11-25] MEDS ORDERED: SODIUM CHLORIDE 0.9% 1,000 ML IV SCH (11:45)
--- NOTE | 2020-11-25 11:55 | P.HPIM ---
History of Present Illness This is a pleasant 80 years old female with past medical history of Alzheimer dementia residing in [facility], hypertension. Presents with dyspnea. She has been workup by her PCP Dr. Chavira show an elevated d-dimer and he referred her to the hospital. CTA of the chest done in the hospital showing pulmonary embolism patient is poor historian and information were taken from the son Mr. Reece at bedside. The patient herself looked at her son and she could not recognize him thinking that he is her friend and she could not tell hernia. As per son this is her baseline She is very mildly tachypneic 18-20. Rest of vitals are stable. CBC, INR, BMP are unremarkable. Troponin negative, proBNP is 62. CTA of the chest: Suboptimal study however highly suspicious for right-sided secondary and tertiary branch pulmonary embolism Patient is started on heparin drip Review of Systems Review of systems CONSTITUTIONAL: No fever, no malaise, no fatigue. HEENT: No recent visual problems or hearing problems. Denied any sore throat. CARDIOVASCULAR: No orthopnea, PND, no palpitations, no syncope. PULMONARY: No shortness of breath, no cough, no hemoptysis. GASTROINTESTINAL: No diarrhea, no nausea, no vomiting, no abdominal pain. Normoactive bowel sounds. NEUROLOGICAL: No headaches, no weakness, no numbness. HEMATOLOGICAL: Denies any bleeding or petechiae. GENITOURINARY: Denies any burning micturition, frequency, or urgency. MUSCULOSKELETAL/RHEUMATOLOGICAL: Denies any joint pain, swelling, or any muscle pain. ENDOCRINE: Denies any polyuria or polydipsia. Past Medical History Past Medical History: Dementia, Diabetes Mellitus Additional Past Medical History / Comment(s): Alzheimer's History of Any Multi-Drug Resistant Organisms: None Reported Past Surgical History: Joint Replacement Additional Past Surgical History / Comment(s): bilateral knee replacement Past Anesthesia/Blood Transfusion Reactions: No Reported Reaction Past Psychological History: No Psychological Hx Reported Smoking Status: Never smoker Past Alcohol Use History: None Reported Past Drug Use History: None Reported - Past Family History Father History Unknown: Yes Mother History Unknown: Yes Medications and Allergies Home Medications Medication Instructions Recorded Confirmed Type Donepezil [Aricept] 10 mg PO DAILY@0900 07/08/16 09/09/19 History ALPRAZolam [Xanax] 0.25 mg PO TID@0900,1500,2100 09/09/19 09/09/19 History Acetaminophen [Tylenol 8 Hour] 650 mg PO Q4H PRN 09/09/19 09/09/19 History Cholecalciferol [Vitamin D3 (25 2,000 unit PO DIRECTED 09/09/19 09/09/19 History Mcg = 1000 Iu)] Clotrimazole/Betamethasone Dip 1 applic TOPICAL Q12H PRN 09/09/19 09/09/19 History [Lotrisone Cream] Ergocalciferol (Vitamin D2) 50,000 unit PO FR@0900 09/09/19 09/09/19 History [Drisdol] QUEtiapine [SEROquel] 25 mg PO BID@0900,209909/09/19 09/09/19 History metFORMIN HCL ER [Glucophage Xr] 500 mg PO DAILY@0900 09/09/19 09/09/19 History Allergies Allergy/AdvReac Type Severity Reaction Status Date / Time Penicillins Allergy Unknown Verified 11/25/20 09:27 Childhood Physical Exam Vitals: Vital Signs Temp Pulse Resp BP 11/25/20 09:47 20 11/25/20 09:21 96.8 F L 80 18 122/65 Intake and Output 11/24/20 11/25/20 11/25/20 22:59 06:59 14:59 Other: Weight 104.326 kg -GENERAL: The patient is alert and oriented x0 which is her baseline of dementia, not in any acute distress. Obese HEENT: Pupils are round and equally reacting to light. EOMI. No scleral icterus. No conjunctival pallor. Normocephalic, atraumatic. No pharyngeal erythema. No thyromegaly. CARDIOVASCULAR: S1 and S2 present. No murmurs, rubs, or gallops. PULMONARY: Chest is clear to auscultation, no wheezing or crackles. ABDOMEN: Soft, nontender, nondistended, normoactive bowel sounds. No palpable organomegaly. MUSCULOSKELETAL: No joint swelling or deformity. EXTREMITIES: No cyanosis, clubbing, or pedal edema. NEUROLOGICAL: Gross neurological examination did not reveal any focal deficits. SKIN: No rashes. no petechiae. Results CBC & Chem 7: 11/25/20 10:01 11/25/20 10:02 Labs: Abnormal Lab Results - Last 24 Hours (Table) 11/25/20 11/25/20 Range/Units 10:01 10:02 APTT 20.0 L (22.0-30.0) sec Glucose 189 H (74-99) mg/dL Assessment and Plan Assessment: Right sides acute pulmonary embolism Advanced Alzheimer dementia History of hypertension Risk of development Diabetes mellitus Obesity with BMI of 35 Plan: This is a pleasant 80 years old female who presents with PE Continue with heparin drip Ultrasound of the legs Pulmonary consult Development precautions Labs and medication were reviewed.. Continue same treatment. Continue with symptomatic treatment. Resume home medication. Monitor lytes and vitals. DVT and GI prophylaxis. Further recommendationsas per clinical course of the patient DVT prophylaxis: heparin GI Prophylaxis: Pepcid Prognosis is guarded
[2020-11-25] MEDS ORDERED: INSULIN ASPART (NovoLOG) 100 UNIT/ML VIAL SQ SCH (12:30)
--- NOTE | 2020-11-25 13:02 | US ---
EXAMINATION TYPE: US venous doppler duplex LE DATE OF EXAM: 11/25/2020 12:27 PM COMPARISON: NONE CLINICAL HISTORY: leg swelling. SIDE PERFORMED: Bilateral TECHNIQUE: The lower extremity deep venous system is examined utilizing real time linear array sonog stacy with graded compression, doppler sonography and color-flow sonography. VESSELS IMAGED: Common Femoral Vein Deep Femoral Vein Greater Saphenous Vein * Femoral Vein Popliteal Vein Small Saphenous Vein * Proximal Calf Veins (* superficial vessels) Morbidly obese patient, technically difficult study. Patient unable to tolerate compressions in femor al vein. Right Leg: Negative for DVT Left Leg: Negative for DVT There is normal flow, compressibility, vascular waveforms IMPRESSION: No evidence of deep venous thrombosis within the lower extremities from the level of the knees centrally
[2020-11-25] MEDS ORDERED: QUEtiapine 50 MG TAB PO PRN (14:52)
--- NOTE | 2020-11-25 16:44 | P.CNPUL ---
History of Present Illness Consult date: 11/25/20 Reason for consult: pulmonary embolism History of present illness: 80-year-old female patient, [facility] who resides at [facility], presented to emergency room because of increasing shortness of breath. She did have a elevated d-dimer and she was referred to the hospital from the [facility] angiogram showed pulmonary embolism. For that reason a pulmonary consultation was requested. The patient was subsequently very poor historian. Her son is the main history provided in this case. In the emergency department, the patient underwent further workup. E her workup included a CBC and a metabolic profile was essentially unremarkable. Correlation profile was negative. Points were negative. CT angiogram showed small pulmonary emboli in the second and third branches of the right lung. For that reason the patient was started on IV heparin. EKG showed a normal sinus rhythm. Overall EKG changes were within normal limits and unremarkable. Note that the patient was monitored stable. The patient was afebrile. Her white cell count was at 5.1 with hemoglobin 12.8. Normal correlation profile. Platelet count is at 215. Electrolytes were normal, creatinine was 0.7, proBNP level was 62, troponin was negative and the COVID-19 testing was also negative. Doppler of the lower extremity was essentially negative for any DVTs. Review of Systems ROS unobtainable: due to mental status Past Medical History Past Medical History: Dementia, Diabetes Mellitus Additional Past Medical History / Comment(s): Alzheimer's History of Any Multi-Drug Resistant Organisms: None Reported Past Surgical History: Joint Replacement Additional Past Surgical History / Comment(s): bilateral knee replacement Past Anesthesia/Blood Transfusion Reactions: No Reported Reaction Past Psychological History: No Psychological Hx Reported Smoking Status: Never smoker Past Alcohol Use History: None Reported Past Drug Use History: None Reported - Past Family History Father History Unknown: Yes Mother History Unknown: Yes Medications and Allergies Home Medications Medication Instructions Recorded Confirmed Type Donepezil [Aricept] 10 mg PO DAILY@0900 07/08/16 11/25/20 History ALPRAZolam [Xanax] 0.5 mg PO HS@2100 09/09/19 11/25/20 History Acetaminophen [Tylenol 8 Hour] 650 mg PO Q4H PRN 09/09/19 11/25/20 History Cholecalciferol [Vitamin D3 (25 2,000 unit PO DAILY@0900 09/09/19 11/25/20 History Mcg = 1000 Iu)] metFORMIN HCL ER [Glucophage Xr] 500 mg PO DAILY@0900 09/09/19 11/25/20 History ALPRAZolam [Xanax] 0.25 mg PO BID@0900,1600 11/25/20 11/25/20 History Ferrous Sulfate [Feosol] 325 mg PO DAILY@0900 11/25/20 11/25/20 History Loratadine 10 mg PO DAILY@0900 11/25/20 11/25/20 History QUEtiapine [SEROquel] 50 mg PO BID@0900,2100 11/25/20 11/25/20 History Allergies Allergy/AdvReac Type Severity Reaction Status Date / Time Penicillins Allergy Unknown Verified 11/25/20 13:02 Childhood Physical Exam Vitals: Vital Signs Temp Pulse Resp BP 11/25/20 09:47 20 11/25/20 09:21 96.8 F L 80 18 122/65 Intake and Output 11/25/20 11/25/20 11/25/20 06:59 14:59 22:59 Other: Weight 104.326 kg -GENERAL: The patient is alert and oriented x0 which is her baseline of dementia, not in any acute distress. Obese Head exam was generally normal. There was no scleral icterus or corneal arcus. Mucous membranes were moist. HEENT: Pupils are round and equally reacting to light. EOMI. No scleral icterus. No conjunctival pallor. Normocephalic, atraumatic. No pharyngeal erythema. No thyromegaly. CARDIOVASCULAR: S1 and S2 present. No murmurs, rubs, or gallops. PULMONARY: Chest is clear to auscultation, no wheezing or crackles. ABDOMEN: Soft, nontender, nondistended, normoactive bowel sounds. No palpable organomegaly. MUSCULOSKELETAL: No joint swelling or deformity. EExamination of the extremities revealed easily palpable radial, femoral and pedal pulses. There was no cyanosis, clubbing or edema. NEUROLOGICAL: Gross neurological examination did not reveal any focal deficits. Examination of the skin revealed no evidence of significant rashes, suspicious appearing nevi or other concerning lesions. Results - Laboratory Findings CBC and BMP: 11/25/20 10:01 11/25/20 10:02 PT/INR, D-dimer PT 10.2 sec (9.0-12.0) 11/25/20 10:01 INR 0.9 (<1.2) 11/25/20 10:01 Abnormal lab findings: Abnormal Labs 11/25/20 11/25/20 10:01 10:02 APTT 20.0 L Glucose 189 H - Diagnostic Findings Chest x-ray: image reviewed CT scan - chest: image reviewed Assessment and Plan Plan: 1 acute unprovoked pulmonary embolism involving the right lower lobe pulmonary artery branches 2 shortness of breath secondary to above 3 elevated d-dimer secondary to above 4 negative Doppler of lower extremities 5 Alzheimer's dementia with impairment of the cognitive functions 6 hypertension 7 diabetes mellitus Plan Proceed with echocardiogram to assess for LV function and pulmonary hypertension and strain pattern I met the patient in the emergency department and the presence of her son. Obviously, the patient has significant impairment of the cognitive functions. She will get very restless and agitated and a hospital setting where she cannot function at all. To keep her in the hospital, we have to either restrainer or give her sedatives. I'm very much inclined ascending this patient back to [facility] on the [place] where she can function at her own setting. Based on that, I'm recommending to discontinue the IV heparin. We'll give her a short course o f anticoagulation with Eliquis for the next 6 months. I can follow this patient in the office and decide on length of anticoagulation accordingly. I discussed this with the son. He is very much concerned on his mother's inability to pain hospital because of her advanced dementia. For that reason, we have made a decision to release this patient back to [facility] on oral antibiotic cognitive soon as possible. She is hemodynamically stable. She is on room air oxygen. No signs of any hypoxemia. No signs of any respiratory distress. Doppler of the lower extremities have been negative.. And infected Dr. brody. Because of her advanced dementia and ongoing issues, it's reasonable to continue the patient back home or [facility] anticoagulation. I will see her office on outpatient basis.
[2020-11-25 18:27] LABS: Partial Thromboplastin Time 117.5 sec (22.0-30.0)
[2020-11-25] MEDS ORDERED: APIXABAN 5 MG TAB PO SCH (21:00)
== END 2020-11-25 19:13 | DRG 176 ==
LOC: EC 09:21 → 3SCARD 11:37
PROVIDERS: ADMIT Internal Medicine; ATTEND Internal Medicine
DX: I26.99 Other pulmonary embolism without acute cor pulmonale (principal); F02.81 Dementia in other diseases classified elsewhere, unspecified severity, with behavioral disturbance; E11.9 Type 2 diabetes mellitus without complications; E66.9 Obesity, unspecified; G30.9 Alzheimer's disease, unspecified; I10 Essential (primary) hypertension; Z68.35 Body mass index [BMI] 35.0-35.9, adult; Z20.822 Contact with and (suspected) exposure to COVID-19; Z79.84 Long term (current) use of oral hypoglycemic drugs; Z79.899 Other long term (current) drug therapy; Z96.653 Presence of artificial knee joint, bilateral
CPT/HCPCS: 36415; 71275; 80048; 83880; 84484; 85025; 85379; 85610; 85730; 87635; 93005; 93970; 99291

== ENCOUNTER 2021-07-28 21:03 | Emergency (ER) | payer MEDICARE, OTHER ==
--- NOTE | 2021-07-28 22:03 | ED ---
Fall HPI - General Stated Complaint: Fall Time Seen by Provider: 07/28/21 21:44 Source: RN notes reviewed, old records reviewed, Caregiver Mode of arrival: EMS Limitations: altered mental status - History of Present Illness Initial Comments: This is a 81-year-old female poor story and unsure fact surrounding events of patient did have a trip and fall prior to arrival. There was some concern patient's lip and nose or trauma. Patient was sent to the emergency department for evaluation. Patient is a poor historian history obtained from family and chart MD Complaint: fall -: unknown Fall From: standing When Fall Occurred: unsure Fall Witnessed: yes, by living facility staff Place Fall Occurred: home Loss of Consciousness: none Prolonged Down Time?: no Symptoms Prior to Fall: none Severity: mild Severity scale (1-10): 0 Context: tripped/slipped Associated Symptoms: denies - Related Data Home Medications Medication Instructions Recorded Confirmed Donepezil [Aricept] 10 mg PO DAILY@0900 07/08/16 07/28/21 Acetaminophen [Tylenol 8 Hour] 650 mg PO Q4H PRN 09/09/19 07/28/21 metFORMIN HCL ER [Glucophage XR] 500 mg PO DAILY@0900 09/09/19 07/28/21 Ferrous Sulfate [Iron (65 MG 325 mg PO DAILY@0900 11/25/20 07/28/21 Elemental)] Loratadine 10 mg PO DAILY@0900 11/25/20 07/28/21 QUEtiapine [SEROquel] 50 mg PO HS@2100 11/25/20 07/28/21 ALPRAZolam [Xanax] 0.25 mg PO DAILY PRN 07/28/21 07/28/21 ALPRAZolam [Xanax] 0.25 mg PO DAILY@1500 07/28/21 07/28/21 ALPRAZolam [Xanax] 0.5 mg PO HS@2100 07/28/21 07/28/21 Apixaban [Eliquis] 5 mg PO BID@0900,2100 07/28/21 07/28/21 Atorvastatin [Lipitor] 10 mg PO HS@2100 07/28/21 07/28/21 Cholecalciferol [Vitamin D3 (25 50 mcg PO DAILY 07/28/21 07/28/21 Mcg = 1000 Iu)] Oxymetazoline 0.05% Nasl [place] 1 spray EA NOSTRIL Q15M PRN 07/28/21 07/28/21 [Afrin 0.05% Nasal [place]] QUEtiapine FUMARATE [SEROquel] 25 mg PO DAILY@0900 07/28/21 07/28/21 Previous Rx's Medication Instructions Recorded Ciprofloxacin HCl [Cipro] 500 mg PO BID 5 Days #10 tab 07/29/21 Allergies Allergy/AdvReac Type Severity Reaction Status Date / Time Penicillins Allergy Unknown Verified 07/28/21 22:56 Childhood Review of Systems ROS Statement: Those systems with pertinent positive or pertinent negative responses have been documented in the HPI. ROS Other: All systems not noted in ROS Statement are negative. Past Medical History Past Medical History: Dementia, Diabetes Mellitus Additional Past Medical History / Comment(s): Alzheimer's History of Any Multi-Drug Resistant Organisms: None Reported Past Surgical History: Joint Replacement Additional Past Surgical History / Comment(s): bilateral knee replacement Past Anesthesia/Blood Transfusion Reactions: No Reported Reaction Past Psychological History: No Psychological Hx Reported Smoking Status: Never smoker Past Alcohol Use History: None Reported Past Drug Use History: None Reported - Past Family History Father History Unknown: Yes Mother History Unknown: Yes General Exam Limitations: altered mental status General appearance: alert, in no apparent distress Head exam: Present: atraumatic, normocephalic, normal inspection Eye exam: Present: normal appearance, PERRL, EOMI. Absent: scleral icterus, conjunctival injection, periorbital swelling ENT exam: Present: normal exam, mucous membranes moist Neck exam: Present: normal inspection. Absent: tenderness, meningismus, lymphadenopathy Respiratory exam: Present: normal lung sounds bilaterally. Absent: respiratory distress, wheezes, rales, rhonchi, stridor Cardiovascular Exam: Present: regular rate, normal rhythm, normal heart sounds. Absent: systolic murmur, diastolic murmur, rubs, gallop, clicks GI/Abdominal exam: Present: soft, normal bowel sounds. Absent: distended, tenderness, guarding, rebound, rigid Extremities exam: Present: normal inspection, full ROM, normal capillary refill. Absent: tenderness, pedal edema, joint swelling, calf tenderness Back exam: Present: normal inspection Neurological exam: Present: alert, oriented X3, CN II-XII intact Psychiatric exam: Present: normal affect, normal mood Skin exam: Present: warm, dry, intact, normal color. Absent: rash Course Vital Signs 07/28/21 07/29/21 21:05 06:03 Temperature 97.7 F Pulse Rate 70 77 Respiratory 16 16 Rate Blood Pressure 136/58 151/64 O2 Sat by Pulse 97 99 Oximetry - Reevaluation(s) Reevaluation #1: 07/28/21 medical record is reviewed Reevaluation #2: 07/28/21 Patient has no change in symptoms here in the ER Reevaluation #3: 07/28/21 Patient several informed of findings and questions are answered Medical Decision Making - Medical Decision Making 81 female for mechanical trip and fall, patient is normal imaging here in the ER and can be discharged back to facility - Lab Data Lab Results 07/28/21 Range/Units 22:08 POC Glucose (mg/dL) 146 H (70-110) mg/dL POC Glu Film Numberer ID Abby Jaeger - Radiology Data Radiology results: report reviewed (CT brain C-spine chest and pelvis x-ray are negative for traumatic injury), image reviewed Disposition Clinical Impression: Fall, Altered mental status Disposition: HOME SELF-CARE Condition: Good Instructions (If sedation given, give patient instructions): Fall Prevention for Older Adults (ED) Prescriptions: Ciprofloxacin HCl [Cipro] 500 mg PO BID 5 Days #10 tab Is patient prescribed a controlled substance at d/c from ED?: No Referrals: Cale Chavira MD [Primary Care Provider] - 1-2 days
[2021-07-28 22:06] VITALS: RESP 16; TEMP 97.7
[2021-07-28 22:09] LABS: Glucose,Whole Blood 146 mg/dL (70-110)
--- NOTE | 2021-07-28 23:22 | CT ---
EXAMINATION TYPE: CT brain cspine wo con DATE OF EXAM: 07/28/2021 COMPARISON: 09/09/2019 HISTORY: fall and AMS CT DLP: 1695.2 mGycm Automated exposure control for dose reduction was used. Images of the brain and cervical spine obtained with no contrast. There is cerebral atrophy. There is enlargement of the ventricles. No mass effect or midline shift. N o sign of intracranial hemorrhage. The calvarium is intact. The skull base is intact. There is normal aeration of the mastoid sinuses. There is hyperostosis frontalis. The cervical vertebra have normal alignment. There is some degenerative disc space narrowing at C5-6 and C6-7 with spur formation. No compression fracture. Prevertebral soft tissues are intact. IMPRESSION: Cerebral atrophy and hydrocephalus. No acute intracranial abnormality. No significant change. Spondylotic changes in the lower cervical spine. No fracture. There is some progression at C6-7 disc compared to old exam.
--- NOTE | 2021-07-28 23:24 | XR ---
EXAMINATION TYPE: XR pelvis AP view DATE OF EXAM: 07/28/2021 COMPARISON: NONE HISTORY: Fall. Pain TECHNIQUE: Single view FINDINGS: The pelvic ring is intact. Proximal femurs and hip joints are intact. No fracture seen. Sac roiliac joints appear intact. IMPRESSION: Negative exam. No pelvic fracture seen.
--- NOTE | 2021-07-28 23:32 | XR ---
EXAMINATION TYPE: XR chest 1V DATE OF EXAM: 07/28/2021 COMPARISON: 04/19/2016 HISTORY: Fall. Altered mental status. TECHNIQUE: Single view FINDINGS: Heart appears slightly enlarged. There is increased pulmonary markings. No pneumothorax. Tr achea is midline. There is no pleural effusion. IMPRESSION: No pulmonary consolidation or heart failure. Mild increased lung markings.
[2021-07-29] MEDS ORDERED: CIPROFLOXACIN HCL 500 MG TAB PO STA (05:47)
[2021-07-29 06:06] VITALS: BP 151/64; PULSE 77
== END 2021-07-29 07:32 | disposition home or self-care (01) ==
LOC: EC 21:03
DX: R41.82 Altered mental status, unspecified (principal); E11.9 Type 2 diabetes mellitus without complications; Z88.0 Allergy status to penicillin; W01.0XXA Fall on same level from slipping, tripping and stumbling without subsequent striking against object, initial encounter
CPT/HCPCS: 36415; 70450; 71045; 72125; 72170

== ENCOUNTER 2022-07-26 14:59 | Emergency (ER) | payer MEDICARE, OTHER ==
--- NOTE | 2022-07-26 16:46 | CT ---
EXAMINATION TYPE: CT brain brady wo con DATE OF EXAM: 07/26/2022 COMPARISON: 07/28/2021 HISTORY: 82-year-old female with pain after injury, fall CT DLP: 1492.2 mGycm Automated exposure control for dose reduction was used. Technique: Examination of the head was done in axial plane without intravenous contrast. Coronal and sagittal reconstructions performed. CT of the cervical spine was obtained in axial plane without intravenous injection of contrast mater ial. Coronal and sagittal reformatted images were obtained from the axial views for evaluation of f ractures, spinal alignment and canal. FINDINGS: Head: There is no evidence of acute intracranial hemorrhage, acute ischemic changes, mass, mass-effect, or extra-axial fluid collection. There is no effacement of cerebral sulci or basal subarachnoid cister ns. There is no hydrocephalus. There is no midline shift. Dill-white matter distinction is preserv ed. Mild ventriculomegaly likely due to central cerebral atrophy, unchanged from prior exam. Dense dural calcifications along the falx and benign hyperostosis frontalis interna. Atherosclerotic calcificatio ns within the right side. Mild to moderate periventricular white matter hypodensities compatible with chronic small vessel ischemic disease. Paranasal sinuses and mastoid air cells well pneumatized. Orbits and globes are intact. Cervical spine: No craniocervical junction abnormality, predental space widening, or prevertebral soft tissue swellin g. Degenerative change at the C1 dens articulation. Moderate dissection plate degenerative change mid to lower cervical spine. Scattered facet and uncove rtebral joint arthropathy is present throughout. Degenerative grade 1 anterolisthesis C7-T1. No acute fracture of the cervical spine. Mild to moderate left neuroforaminal stenosis C5-C6 and C6-C7. Sagittal and coronal reformatted images confirm above findings. COMBINED IMPRESSION: 1. No acute intracranial abnormality seen. Similar mild ventriculomegaly likely in part due to centra l cerebral atrophy. 2. No acute fracture of the cervical spine. Moderate spondylotic change mid to lower cervical spine. Degenerative grade 1 anterolisthesis C7-T1.
--- NOTE | 2022-07-26 16:48 | XR ---
EXAMINATION TYPE: XR knee complete LT DATE OF EXAM: 07/26/2022 COMPARISON: None HISTORY: 82-year-old female pain after fall injury TECHNIQUE: 3 views FINDINGS: Lateral soft tissue swelling is noted. Additional anterior infrapatellar soft tissue swelling. Some c oronary dictated ossicle located above the patella, likely loose bodies. There may be a trace knee brittny int effusion. Both distal femoral and proximal tibial components of the prosthesis appear well seated without periprosthetic fracture. IMPRESSION: Lateral and anterior infrapatellar soft tissue swelling. No underlying acute osseous abnormality seen . Trace knee joint effusion may be reactive.
--- NOTE | 2022-07-26 16:59 | ED ---
Fall HPI - General Chief Complaint: Fall Stated Complaint: fall, head injury Time Seen by Provider: 07/26/22 15:13 Source: patient, family, EMS Mode of arrival: EMS Limitations: altered mental status (Dementia) - History of Present Illness Initial Comments: This patient is an 82-year-old woman transferred here by EMS. The patient at correction for dementia care. She reportedly had ground level fall there. No reported LOC. Patient complaining of left knee pain. Also noted to have left forehead contusion. The patient only able to answer very basic questions. Son is present who does provide additional history - Related Data Home Medications Medication Instructions Recorded Confirmed Donepezil [Aricept] 10 mg PO DAILY 07/08/16 07/26/22 Acetaminophen [Tylenol 8 Hour] 650 mg PO Q4H PRN 09/09/19 07/26/22 metFORMIN HCL ER [Glucophage XR] 500 mg PO DAILY 09/09/19 07/26/22 Ferrous Sulfate [Iron (65 MG 325 mg PO DAILY 11/25/20 07/26/22 Elemental)] Loratadine 10 mg PO DAILY 11/25/20 07/26/22 QUEtiapine [SEROquel] 50 mg PO HS 11/25/20 07/26/22 ALPRAZolam [Xanax] 0.5 mg PO BID@1300,2100 07/28/21 07/26/22 Apixaban [Eliquis] 5 mg PO Q12H 07/28/21 07/26/22 Atorvastatin [Lipitor] 10 mg PO HS 07/28/21 07/26/22 Cholecalciferol [Vitamin D3 (25 50 mcg PO DAILY 07/28/21 07/26/22 Mcg = 1000 Iu)] Oxymetazoline 0.05% Nasl [employer] [place] 1 spray EA NOSTRIL Q15M PRN 07/28/21 07/26/22 [Afrin 0.05% Nasal [employer] [place]] QUEtiapine FUMARATE [SEROquel] 25 mg PO DAILY 07/28/21 07/26/22 Acetaminophen Tab [Tylenol] 650 mg PO BID 07/26/22 07/26/22 Ascorbic Acid [Vitamin C] 500 mg PO DAILY 07/26/22 07/26/22 Ocusoft Dry Eye Kit 1 applic BOTH EYES DAILY@0600 07/26/22 07/26/22 Zinc Gluconate [Zinc] 50 mg PO DAILY 07/26/22 07/26/22 Allergies Allergy/AdvReac Type Severity Reaction Status Date / Time Penicillins Allergy Unknown Verified 07/26/22 16:23 Childhood Review of Systems ROS Statement: Those systems with pertinent positive or pertinent negative responses have been documented in the HPI. ROS Other: All systems not noted in ROS Statement are negative. Limitations: ROS unobtainable due to patients medical condition (Dementia) Cardiovascular: Denies: chest pain Gastrointestinal: Denies: abdominal pain, vomiting Musculoskeletal: Reports: arthralgia (Left knee pain). Denies: back pain Neurological: Denies: headache Past Medical History Past Medical History: Dementia, Diabetes Mellitus Additional Past Medical History / Comment(s): Alzheimer's History of Any Multi-Drug Resistant Organisms: None Reported Past Surgical History: Joint Replacement Additional Past Surgical History / Comment(s): bilateral knee replacement Past Anesthesia/Blood Transfusion Reactions: No Reported Reaction Past Psychological History: No Psychological Hx Reported Smoking Status: Never smoker Past Alcohol Use History: None Reported Past Drug Use History: None Reported - Past Family History Father History Unknown: Yes Mother History Unknown: Yes General Exam Limitations: altered mental status General appearance: alert, in no apparent distress Head exam: Present: normocephalic, other (Left frontotemporal contusion, no obvious deformity.) Eye exam: Present: normal appearance, PERRL, EOMI. Absent: scleral icterus, conjunctival injection ENT exam: Present: normal oropharynx Neck exam: Present: normal inspection, full ROM. Absent: tenderness Respiratory exam: Present: normal lung sounds bilaterally. Absent: respiratory distress, wheezes, rales, rhonchi, stridor, accessory muscle use Cardiovascular Exam: Present: regular rate, normal rhythm, normal heart sounds. Absent: systolic murmur, diastolic murmur, rubs, gallop GI/Abdominal exam: Present: soft. Absent: distended, tenderness, guarding, rebound, rigid, mass Extremities exam: Present: normal inspection, full ROM, tenderness, normal capillary refill, other (Tenderness to palpation of anterior and lateral aspect of left knee). Absent: pedal edema, calf tenderness Back exam: Present: normal inspection. Absent: CVA tenderness (R), CVA tenderness (L), vertebral tenderness Neurological exam: Present: alert. Absent: oriented X3 (Patient is oriented only to person), motor sensory deficit Skin exam: Present: warm, dry, intact, normal color. Absent: rash Course Vital Signs 07/26/22 07/26/22 07/26/22 15:04 18:15 18:16 Temperature 97.4 F L 98.0 F Pulse Rate 71 75 Respiratory 16 18 Rate Blood Pressure 105/70 110/77 O2 Sat by Pulse 98 98 Oximetry Medical Decision Making - Medical Decision Making The patient had CT of the brain and C-spine which I interpreted as being negative for acute bony injury and intracranial hemorrhage. The patient had left knee x-ray which I interpreted as being negative for acute fracture or dislocation. Was pt. sent in by a medical professional or institution (, PA, [facility], urgent care, hospital, or correction...) When possible be specific @ -Sent from correction for evaluation of fall Did you speak to anyone other than the patient for history (EMS, parent, family, police, friend...)? What history was obtained from this source @ -[No] Did you review nursing and triage notes (agree or disagree)? Why? @ -[I reviewed and agree with nursing and triage notes] Were old charts reviewed (outside hosp., previous admission, EMS record, old EKG, old radiological studies, urgent care reports/EKG's, correction records)? Report findings @ -[Transfer records were reviewed] Differential Diagnosis (chest pain, altered mental status, abdominal pain women, abdominal pain men, vaginal bleeding, weakness, fever, dyspnea, syncope, headache, dizziness, GI bleed, back pain, seizure, CVA, palpatations, mental health, musculoskeletal)? @ -[Differential diagnosis includes closed head injury/concussion, intracranial hemorrhage, contusions, amongst other conditions. EKG interpreted by me (3pts min.). @ -[ X-rays interpreted by me (1pt min.). @ -[As above CT interpreted by me (1pt min.). @ -[As above U/S interpreted by me (1pt. min.). @ -[None done] What testing was considered but not performed or refused? (CT, X-rays, U/S, labs)? Why? @ -[None] What meds were considered but not given or refused? Why? @ -[None] Did you discuss the management of the patient with other professionals (professionals i.e. , PA, [employer], lab, RT, psych nurse, director social, management intern, teacher, workers' compensation hearings officer, case work aide)? Give summary @ -[No] Was smoking cessation discussed for >3mins.? @ -[No] Was critical care preformed (if so, how long)? @ -[No] Were there social determinants of health that impacted care today? How? (Homelessness, low income, unemployed, alcoholism, drug addiction, transportation, low edu. Level, literacy, decrease access to med. care, residential, rehab)? @ -[No] Was there de-escalation of care discussed even if they declined (Discuss DNR or withdrawal of care, Hospice)? DNR status @ -[No] What co-morbidities impacted this encounter? (DM, HTN, Smoking, COPD, CAD, Cancer, CVA, ARF, Chemo, Hep., AIDS, mental health diagnosis, sleep apnea, morbid obesity)? @ -[Underlying dementia Was patient admitted / discharged? Hospital course, mention meds given and route, prescriptions, significant lab abnormalities, going to OR and other pertinent info. @ -[Patient discharged back to correction Undiagnosed new problem with uncertain prognosis? @ -[No] Drug Therapy requiring intensive monitoring for toxicity (Heparin, Nitro, Insulin, Cardizem)? @ -[No] Were any procedures done? @ -[No] Diagnosis/symptom? @ -[Acute scalp contusion Acute knee contusion Fall injuries Acute, or Chronic, or Acute on Chronic? @ -[default] Uncomplicated (without systemic symptoms) or Complicated (systemic symptoms)? @ -[Uncomplicated Side effects of treatment? @ -[No] Exacerbation, Progression, or Severe Exacerbation? @ -[No] Poses a threat to life or bodily function? How? (Chest pain, [place], [place], pneumonia, PE, COPD, DKA, ARF, appy, cholecystitis, CVA, Diverticulitis, Homicidal, Suicidal, threat to staff... and all critical care pts) @ -[No] Disposition Clinical Impression: Fall, Contusion, knee, Scalp contusion Disposition: HOME SELF-CARE Condition: Good Instructions (If sedation given, give patient instructions): Fall Prevention for Older Adults (ED), Contusion in Adults (ED) Is patient prescribed a controlled substance at d/c from ED?: No Referrals: Cale Chavira MD [Primary Care Provider] - 1-2 days
[2022-07-26 18:16] VITALS: BP 110/77; PULSE 75; RESP 18; TEMP 98
== END 2022-07-26 18:18 | disposition home or self-care (01) ==
LOC: EC 14:59
DX: S00.03XA Contusion of scalp, initial encounter (principal); S80.02XA Contusion of left knee, initial encounter; E11.9 Type 2 diabetes mellitus without complications; Z88.0 Allergy status to penicillin; Z79.84 Long term (current) use of oral hypoglycemic drugs; Z79.01 Long term (current) use of anticoagulants; Z79.899 Other long term (current) drug therapy; W18.30XA Fall on same level, unspecified, initial encounter
CPT/HCPCS: 70450; 72125; 99285

== ENCOUNTER 2022-11-29 14:08 | Emergency (ER) | payer MEDICARE, OTHER ==
[2022-11-29] MEDS ORDERED: KETOROLAC 15 MG/ML 1 ML VIAL IM STA (14:33)
[2022-11-29] MEDS ORDERED: MORPHINE SULFATE 2 MG/ML SYRINGE IM STA (14:33)
--- NOTE | 2022-11-29 14:40 | ED ---
Fall HPI - General Chief Complaint: Fall Stated Complaint: Fall Time Seen by Provider: 11/29/22 14:13 Source: family, EMS, RN notes reviewed Mode of arrival: EMS Limitations: altered mental status - History of Present Illness Initial Comments: This is an 82-year-old female who presents to the emergency department for a fall injury. Patient presents from [facility], where she was found on the ground from a fall. Patient's son states that there was a fire drill, and she was supposed to be leaving the building. However, when staff came to check on her, she was found on the ground. They are unsure how long she was on the ground for. She has not been on blood thinners for about a month at this point. It is also clear if there was any loss of consciousness. Patient does have dementia and is essentially nonverbal and unable to provide any of her own history. Her family states that she uses a walker, but forgets how to use it and never uses it pr operly, even when taught, because she forgets due to the dementia. They believe that this may have been what triggered the fall. MD Complaint: fall - Related Data Home Medications Medication Instructions Recorded Confirmed Donepezil [Aricept] 10 mg PO DAILY 07/08/16 07/26/22 Acetaminophen [Tylenol 8 Hour] 650 mg PO Q4H PRN 09/09/19 07/26/22 metFORMIN HCL ER [Glucophage XR] 500 mg PO DAILY 09/09/19 07/26/22 Ferrous Sulfate [Iron (65 MG 325 mg PO DAILY 11/25/20 07/26/22 Elemental)] Loratadine 10 mg PO DAILY 11/25/20 07/26/22 QUEtiapine [SEROquel] 50 mg PO HS 11/25/20 07/26/22 ALPRAZolam [Xanax] 0.5 mg PO BID@1300,2100 07/28/21 07/26/22 Apixaban [Eliquis] 5 mg PO Q12H 07/28/21 07/26/22 Atorvastatin [Lipitor] 10 mg PO HS 07/28/21 07/26/22 Cholecalciferol [Vitamin D3 (25 50 mcg PO DAILY 07/28/21 07/26/22 Mcg = 1000 Iu)] Oxymetazoline 0.05% Nasl [place] 1 spray EA NOSTRIL Q15M PRN 07/28/21 07/26/22 [Afrin 0.05% Nasal [place]] QUEtiapine FUMARATE [SEROquel] 25 mg PO DAILY 07/28/21 07/26/22 Acetaminophen Tab [Tylenol] 650 mg PO BID 07/26/22 07/26/22 Ascorbic Acid [Vitamin C] 500 mg PO DAILY 07/26/22 07/26/22 Ocusoft Dry Eye Kit 1 applic BOTH EYES DAILY@0600 07/26/22 07/26/22 Zinc Gluconate [Zinc] 50 mg PO DAILY 07/26/22 07/26/22 Previous Rx's Medication Instructions Recorded cefUROXime axetiL [Ceftin] 500 mg PO BID 7 Days #14 tab 11/29/22 Allergies Allergy/AdvReac Type Severity Reaction Status Date / Time Penicillins Allergy Unknown Verified 07/26/22 16:23 Childhood Review of Systems ROS Statement: Those systems with pertinent positive or pertinent negative responses have been documented in the HPI. ROS Other: All systems not noted in ROS Statement are negative. Past Medical History Past Medical History: Dementia Additional Past Medical History / Comment(s): Alzheimer's History of Any Multi-Drug Resistant Organisms: None Reported Past Surgical History: Joint Replacement Additional Past Surgical History / Comment(s): bilateral knee replacement Past Anesthesia/Blood Transfusion Reactions: No Reported Reaction Past Psychological History: No Psychological Hx Reported Smoking Status: Never smoker Past Alcohol Use History: None Reported Past Drug Use History: None Reported - Past Family History Father History Unknown: Yes Mother History Unknown: Yes General Exam Limitations: language barrier, physical limitation General appearance: alert Head exam: Present: other (Ecchymosis over the nasal bridge with evidence of recent active bleeding from the right naris, front teeth, and lip. However, there are no large or gaping lip lacerations.) Eye exam: Present: normal appearance, PERRL, EOMI. Absent: scleral icterus, conjunctival injection, periorbital swelling ENT exam: Present: other (No septal hematoma) Respiratory exam: Present: normal lung sounds bilaterally. Absent: respiratory distress, wheezes, rales, rhonchi, stridor Cardiovascular Exam: Present: regular rate, normal rhythm, normal heart sounds. Absent: systolic murmur, diastolic murmur, rubs, gallop, clicks Extremities exam: Present: other (Minor ecchymosis over the right humerus. 2+ radial pulses. Capillary refill less than 1 second.) Neurological exam: Present: alert Course Vital Signs 11/29/22 11/29/22 14:10 15:30 Temperature 98.4 F Pulse Rate 77 74 Respiratory 20 18 Rate Blood Pressure 116/77 144/92 O2 Sat by Pulse 99 98 Oximetry Medical Decision Making - Medical Decision Making This is an 82-year-old female who presents to the emergency department for a fall. Was pt. sent in by a medical professional or institution? @ -[facility] Did you speak to anyone other than the patient for history? @ -Her son provided all of the history. Did you review nursing and triage notes? @ -Yes, and I agree, it is accurate with regards to the patient's symptoms. Were old charts reviewed? @ -No Differential Diagnosis? @ -Differential Diagnosis Head Injury: Contusion, hematoma, intracranial hemorrhage, skull fracture, whiplash, concussion, this is not meant to be an all-inclusive list. EKG interpreted by me (3pts min.)? @ -Not obtained X-rays interpreted by me (1pt min.)? @ -X-ray of the chest and right humerus obtained. My interpretation identifies no evidence of any acute rib fractures or fractures of the humerus. CT interpreted by me (1pt min.)? @ -Computed tomography scan of the brain, c-spine, and facial bones obtained. My interpretation identifies a bilateral nasal bone fracture without evidence of an acute intracranial hemorrhage. U/S interpreted by me (1pt. min.)? @ -Not obtained What testing was considered but not performed? (CT, X-rays, U/S, labs)? Why? @ -None What meds were considered but not given? Why? @ -None Did you discuss the management of the patient with other professionals? @ -No Did you reconcile home meds? @ -No Was smoking cessation discussed for >3mins.? @ -No Was critical care preformed (if so, how long)? @ -No Were there social determinants of health that impacted care today? How? (Homelessness, low income, unemployed, alcoholism, drug addiction, transportation, low edu. Level, literacy, decrease access to med. care, nursing home, rehab)? @ -No Was there de-escalation of care discussed even if they declined? (Discuss DNR or withdrawal of care, Hospice)? @ -No What co-morbidities impacted this encounter? (DM, HTN, Smoking, COPD, CAD, Cancer, CVA, Hep., AIDS, mental health diagnosis, sleep apnea, morbid obesity)? @ -Dementia Was patient admitted / discharged? @ -Discharged. Given that the patient had a fall with unknown downtime, we did obtain lab work including a CK. CK was found to be only mildly elevated at 167. Urinalysis is positive for a UTI. Urine was sent for culture. Computed tomography scan of the brain, c-spine, and facial bones obtained revealing a bilateral nasal bone fracture. This was otherwise negative for any acute process. Patient had no evidence of a septal hematoma on physical examination. X-ray of the chest and right humerus obtained as well, also revealing no acute findings. Patient was given a dose of ceftriaxone in the emergency department and a prescription for Ceftin was provided. We did discuss nose blowing precautions to some extent, however due to the patient's dementia, it is unlikely that these will be recalled. I did discuss this in her discharge instructions with the hope that Toni can try to monitor this. They were also given information for ENT follow-up, which will have to be set up by Toni. Otherwise advised ibuprofen and Tylenol as needed for pain relief. Patient otherwise discharged home in stable condition. Undiagnosed new problem with uncertain prognosis? @ -None Drug Therapy requiring intensive monitoring for toxicity (Heparin, Nitro, Insulin, Cardizem)? @ -None Were any procedures done? @ -None Diagnosis/symptom? @ -Fall, UTI, nasal bone fracture Acute, or Chronic, or Acute on Chronic? @ -Acute Uncomplicated (without systemic symptoms) or Complicated (systemic symptoms)? @ -Uncomplicated Side effects of treatment? @ -None Exacerbation, Progression, or Severe Exacerbation] @ -Not applicable Poses a threat to life or bodily function? @ -Unlikely Return precautions reviewed in depth, the patient is instructed to return to the emergency department with any new, worsening, or concerning symptoms. Patient verbalized understanding. This case was discussed in detail with the attending ED physician, Dr. Gunderson. Presentation, findings, and treatment plan discussed in detail as well. - Lab Data Result diagrams: 11/29/22 14:46 11/29/22 14:46 Lab Results 11/29/22 11/29/22 11/29/22 Range/Units 14:46 14:46 14:46 WBC 7.9 (3.8-10.6) k/uL RBC 4.50 (3.80-5.40) m/uL Hgb 13.7 (11.4-16.0) gm/dL Hct 41.0 (34.0-46.0) % MCV 91.2 (80.0-100.0) fL MCH 30.4 (25.0-35.0) pg MCHC 33.4 (31.0-37.0) g/dL RDW 13.7 (11.5-15.5) % Plt Count 232 (150-450) k/uL MPV 10.0 Neutrophils % 76 % Lymphocytes % 17 % Monocytes % 4 % Eosinophils % 2 % Basophils % 0 % Neutrophils # 6.0 (1.3-7.7) k/uL Lymphocytes # 1.3 (1.0-4.8) k/uL Monocytes # 0.3 (0-1.0) k/uL Eosinophils # 0.1 (0-0.7) k/uL Basophils # 0.0 (0-0.2) k/uL Sodium 140 (137-145) mmol/L Potassium 5.0 (3.5-5.1) mmol/L Chloride 108 H (98-107) mmol/L Carbon Dioxide 18 L (22-30) mmol/L Anion Gap 14 mmol/L BUN 18 H (7-17) mg/dL Creatinine 0.76 (0.52-1.04) mg/dL Est GFR (CKD-EPI)AfAm 85 (>60 ml/min/1.73 sqM) Est GFR (CKD-EPI)NonAf 74 (>60 ml/min/1.73 sqM) Glucose 101 H (74-99) mg/dL Calcium 9.8 (8.4-10.2) mg/dL Total Bilirubin 0.9 (0.2-1.3) mg/dL AST 30 (14-36) U/L ALT 19 (4-34) U/L Alkaline Phosphatase 74 (38-126) U/L Creatine Kinase 167 H (30-135) U/L Total Protein 7.5 (6.3-8.2) g/dL Albumin 4.1 (3.5-5.0) g/dL Urine Color Dark Yellow Urine Appearance Turbid H (Clear) Urine pH 7.0 (5.0-8.0) Ur Specific [place] 1.025 (1.001-1.035) Urine Protein 1+ (Negative) Urine Glucose (UA) Negative (Negative) Urine Ketones 1+ (Negative) Urine Blood Trace (Negative) Urine Nitrite Positive (Negative) Urine Bilirubin Negative (Negative) Urine Urobilinogen <2.0 (<2.0) mg/dL Ur Leukocyte Esterase Large (Negative) Urine RBC 11 H (0-5) /hpf Urine WBC >182 H (0-5) /hpf Urine WBC Clumps Many H (None) /hpf Ur Squamous Epith Cells 3 (0-4) /hpf Urine Bacteria Many H (None) /hpf Hyaline Casts 28 H (0-2) /lpf Urine Mucus Many H (None) /hpf - Radiology Data Radiology results: report reviewed, image reviewed Disposition Clinical Impression: Fall, Nasal bone fracture, UTI (urinary tract infection) Disposition: HOME SELF-CARE Instructions (If sedation given, give patient instructions): Nasal Fracture (ED), Fall Prevention for Older Adults (ED) Additional Instructions: Return to the emergency department with any new, worsening, or concerning symptoms. She can alternate with ibuprofen and Tylenol as needed for pain relief. The antibiotic will be taken as prescribed for 7 days, with her first dose beginning tomorrow, as she received an antibiotic in the emergency department today. Toni will have to set up a follow-up appointment with ENT for her regarding the nasal bone fracture. I have listed two local providers below. They will also need to try to keep her from blowing her nose if possible. Follow up with her primary care provider in 1-2 days. Prescriptions: cefUROXime axetiL [Ceftin] 500 mg PO BID 7 Days #14 tab Is patient prescribed a controlled substance at d/c from ED?: No Referrals: Cale Chavira MD [Primary Care Provider] - 1-2 days Juan Peterson MD [STAFF PHYSICIAN] - 1-2 days Vj Gonzalez MD [STAFF PHYSICIAN] - 1-2 days
[2022-11-29 15:02] LABS: Basophils % (A) 0 %; Eosinophils # (A) 0.1 k/uL (0-0.7); Eosinophils % (A) 2 %; HGB 13.7 gm/dL (11.4-16.0); Lymphocytes # (A) 1.3 k/uL (1.0-4.8); Lymphocytes % (A) 17 %; MCH 30.4 pg (25.0-35.0); MCHC 33.4 g/dL (31.0-37.0); MCV 91.2 fL (80.0-100.0); Monocytes # (A) 0.3 k/uL (0-1.0); Monocytes % (A) 4 %; Neutrophils % (A) 76 %; Platelet Count 232 k/uL (150-450); RDW 13.7 % (11.5-15.5); WBC 7.9 k/uL (3.8-10.6)
[2022-11-29 15:07] LABS: ALT 19 U/L (4-34); African American GFR (CKD) 85 (>60 ml/min/1.73 sqM); Anion Gap 14 mmol/L; Blood Urea Nitrogen 18 mg/dL (7-17); Calcium 9.8 mg/dL (8.4-10.2); Carbon Dioxide 18 mmol/L (22-30); Chloride 108 mmol/L (98-107); Creatine Kinase 167 U/L (30-135); Glucose 101 mg/dL (74-99); Non-African American GFR(CKD) 74 (>60 ml/min/1.73 sqM); Sodium 140 mmol/L (137-145); Total Bilirubin 0.9 mg/dL (0.2-1.3)
[2022-11-29 15:14] LABS: AST 30 U/L (14-36); Albumin 4.1 g/dL (3.5-5.0); Alkaline Phosphatase 74 U/L (38-126); Total Protein 7.5 g/dL (6.3-8.2)
--- NOTE | 2022-11-29 15:14 | XR ---
EXAMINATION TYPE: XR humerus RT DATE OF EXAM: 11/29/2022 CLINICAL HISTORY: pain TECHNIQUE: AP and lateral views of the right humerus are submitted. COMPARISON: None FINDINGS: There is no acute fracture/dislocation evident. The acromioclavicular and glenohumeral brittny int spaces appear within normal limits. The visualized ribs are intact and unremarkable. IMPRESSION: 1. There is no acute fracture or dislocation. ICD 10 NO FRACTURE, INITIAL EVALUATION
--- NOTE | 2022-11-29 15:15 | XR ---
EXAMINATION TYPE: XR chest 2V DATE OF EXAM: 11/29/2022 COMPARISON: NONE HISTORY: Shortness of breath TECHNIQUE: Frontal and lateral views of the chest are obtained. FINDINGS: Scattered senescent parenchymal changes noted. Hyperinflation compatible with COPD. No evidence for infiltrate. No evidence for atelectasis. Heart size is stable. Mediastinal structures are stable and grossly unremarkable. No evidence for hilar prominence. Degenerative changes dorsal spine. IMPRESSION: 1. No evidence for acute pulmonary disease.
--- NOTE | 2022-11-29 15:22 | CT ---
EXAMINATION TYPE: CT brain cspine wo con, CT facial bones wo con CT DLP: 804.2 (accession [id number]), 394.1 (accession [id number]) mGycm, Automated exposure control for dose reduction was used. DATE OF EXAM: 11/29/2022 3:10 PM COMPARISON: 07/26/2022. CLINICAL INDICATION:Female, 82 years old with history of Fall, head injury; fall TECHNIQUE: Brain: Multiple axial CT images of the brain were obtained without IV contrast. Cspine: Axial CT images from the skull base to the inferior aspect of T2 we obtained without intraven ous contrast. Coronal and sagittal reformatted images were also reviewed. Facial: Axial imaging of the facial structures with sagittal coronal reformats. FINDINGS: Brain: Extra-axial spaces: No abnormal extra-axial fluid collections. Ventricular system: Dilatation in proportion to cerebral atrophy. Cerebral parenchyma: Cerebral atrophy. No acute intraparenchymal hemorrhage or mass effect. The rosas -white junction is well differentiated. Scattered hypoattenuating areas are seen within the white mat ter. Mesial temporal lobe atrophy bilaterally. Cerebellum: Unremarkable. Mass effect: No evidence of midline shift. Intracranial vasculature: Atherosclerotic calcifications of the intracranial vessels. Soft tissues: Normal. Calvarium/osseous structures: No depressed skull fracture. Paranasal sinuses and mastoid air cells: Mild layering probable blood products from nasal bone fractu re. Visualized orbits: Orbital contents are intact. Cervical spine: Fracture: None. Osseous structures: Multilevel degenerative disc disease changes with endplate spurring and disc oste ophyte complex's. Vertebral alignment: Within normal limits. Spinal canal/Neural Foramina: Disc osteophyte complexes at C4-C6 with at least mild spinal canal sten osis. No evidence for significant neural foraminal stenosis. Neck soft tissues: Prevertebral soft tissues are within normal limits. Other: The airway is patent. Atherosclerosis of the carotid bifurcations. Facial: There is evidence of bilateral nasal bone fractures. There is associated soft tissue swelling . Left greater than right side.. The orbital contents are unremarkable.The temporal-mandibular joints appear symmetric. The visualized portion of the paranasal sinuses appear clear. IMPRESSION: 1. No acute intracranial process. 2. Bilateral Nasal bone fracture with associated edema. 3. No evidence of cervical spine fracture. 4. Mild multilevel degenerative disc disease. 5. Mesial temporal lobe atrophy bilaterally.
[2022-11-29 16:11] LABS: Appearance,Urine Turbid (Clear); Color,Urine Dark Yellow; Glucose,Urine (UA) Negative (Negative); Protein,Urine 1+ (Negative); Specific Gravity,Urine 1.025 (1.001-1.035)
[2022-11-29 16:12] LABS: Bilirubin,Urine Negative (Negative); Blood,Urine Trace (Negative); Ketones,Urine 1+ (Negative); Leukocyte Esterase,Urine Large (Negative); Nitrite,Urine Positive (Negative); Urobilinogen,Urine <2.0 mg/dL (<2.0)
[2022-11-29 16:14] LABS: Bacteria,Urine Many /hpf; Hyaline Casts,Urine 28 /lpf (0-2); Mucus,Urine Many /hpf; RBC,Urine 11 /hpf (0-5); Squamous Epithelial Cell,Urine 3 /hpf (0-4); WBC,Urine >182 /hpf (0-5)
[2022-11-29] MEDS ORDERED: cefTRIAXone IN SWFI 1,000 MG/10 ML SYRINGE IVP STA (16:24)
[2022-11-29] MEDS ORDERED: ACET/COD 300 MG/30 MG STARTER PACK 6 TAB BTL PO STA (16:25)
[2022-11-29 17:13] VITALS: RESP 20
[2022-11-29 18:58] VITALS: BP 104/92; PULSE 70; TEMP 98.4
== END 2022-11-29 18:15 | disposition home or self-care (01) ==
LOC: EC 14:08
DX: S02.2XXA Fracture of nasal bones, initial encounter for closed fracture (principal); N39.0 Urinary tract infection, site not specified; Z88.0 Allergy status to penicillin; W18.30XA Fall on same level, unspecified, initial encounter
CPT/HCPCS: 36415; 80053; 82550; 85025; 81001; 87086; 73060; 71046; 72125; 70486; 70450; 99285; 96374; 96372 ×2; J0696; J2270; J1885

== ENCOUNTER 2022-12-01 22:30 | Emergency (ER) | payer MEDICARE, OTHER ==
[2022-12-01 23:08] VITALS: BP 110/69; PULSE 93; RESP 17; TEMP 98.7
--- NOTE | 2022-12-01 23:08 | ED ---
General Adult HPI - General Chief complaint: Syncope Stated complaint: Syncope, Altered Mental Time Seen by Provider: 12/01/22 22:51 Source: family, EMS, RN notes reviewed, old records reviewed Mode of arrival: EMS Limitations: altered mental status - History of Present Illness Initial comments: 82-year-old female history of dementia presenting with an episode of unresponsiveness and possible syncope. History is quite limited. I did obtain history from the patient's sons were at bedside. He states she's had a fairly steady decline and was recently on hospice. She was taken off hospice about one week ago after a fall where she had head trauma. She was noted to have a fractured nose at that time with no intracranial hemorrhage. She is nonamb ulatory currently. Currently at baseline mental status although she has had a steady decline. She had brief episode of unresponsiveness and paramedics had noted that there was food in her mouth at this time. There is no vomiting or choking witnessed. - Related Data Home Medications Medication Instructions Recorded Confirmed Donepezil [Aricept] 10 mg PO DAILY 07/08/16 07/26/22 Acetaminophen [Tylenol 8 Hour] 650 mg PO Q4H PRN 09/09/19 07/26/22 metFORMIN HCL ER [Glucophage XR] 500 mg PO DAILY 09/09/19 07/26/22 Ferrous Sulfate [Iron (65 MG 325 mg PO DAILY 11/25/20 07/26/22 Elemental)] Loratadine 10 mg PO DAILY 11/25/20 07/26/22 QUEtiapine [SEROquel] 50 mg PO HS 11/25/20 07/26/22 ALPRAZolam [Xanax] 0.5 mg PO BID@1300,2100 07/28/21 07/26/22 Apixaban [Eliquis] 5 mg PO Q12H 07/28/21 07/26/22 Atorvastatin [Lipitor] 10 mg PO HS 07/28/21 07/26/22 Cholecalciferol [Vitamin D3 (25 50 mcg PO DAILY 07/28/21 07/26/22 Mcg = 1000 Iu)] Oxymetazoline 0.05% Nasl [place] 1 spray EA NOSTRIL Q15M PRN 07/28/21 07/26/22 [Afrin 0.05% Nasal [place]] QUEtiapine FUMARATE [SEROquel] 25 mg PO DAILY 07/28/21 07/26/22 Acetaminophen Tab [Tylenol] 650 mg PO BID 07/26/22 07/26/22 Ascorbic Acid [Vitamin C] 500 mg PO DAILY 07/26/22 07/26/22 Ocusoft Dry Eye Kit 1 applic BOTH EYES DAILY@0600 07/26/22 07/26/22 Zinc Gluconate [Zinc] 50 mg PO DAILY 07/26/22 07/26/22 Previous Rx's Medication Instructions Recorded cefUROXime axetiL [Ceftin] 500 mg PO BID 7 Days #14 tab 11/29/22 Allergies Allergy/AdvReac Type Severity Reaction Status Date / Time Penicillins Allergy Unknown Verified 12/01/22 22:51 Childhood Review of Systems ROS Statement: Those systems with pertinent positive or pertinent negative responses have been documented in the HPI. ROS Other: All systems not noted in ROS Statement are negative. Past Medical History Past Medical History: Dementia Additional Past Medical History / Comment(s): Alzheimer's History of Any Multi-Drug Resistant Organisms: None Reported Past Surgical History: Joint Replacement Additional Past Surgical History / Comment(s): bilateral knee replacement Past Anesthesia/Blood Transfusion Reactions: No Reported Reaction Past Psychological History: No Psychological Hx Reported Smoking Status: Never smoker Past Alcohol Use History: None Reported Past Drug Use History: None Reported - Past Family History Father History Unknown: Yes Mother History Unknown: Yes General Exam Limitations: no limitations General appearance: alert, in no apparent distress Head exam: Present: other (Bilateral raccoon) Eye exam: Present: normal appearance, PERRL Neck exam: Present: normal inspection. Absent: tenderness, meningismus Respiratory exam: Present: normal lung sounds bilaterally. Absent: respiratory distress, wheezes Cardiovascular Exam: Present: regular rate, normal rhythm GI/Abdominal exam: Present: soft. Absent: distended, tenderness, guarding Extremities exam: Present: normal inspection, normal capillary refill Neurological exam: Present: alert. Absent: oriented X3 Psychiatric exam: Present: normal affect, normal mood Skin exam: Present: warm, dry, intact. Absent: cyanosis, diaphoretic Course Vital Signs 12/01/22 22:46 Temperature 98.7 F Pulse Rate 93 Respiratory 17 Rate Blood Pressure 110/69 O2 Sat by Pulse 97 Oximetry Medical Decision Making - Medical Decision Making Was pt. sent in by a medical professional or institution (, PA, [employer], urgent care, hospital, or senior living...) When possible be specific @ -No Did you speak to anyone other than the patient for history (EMS, parent, family, police, friend...)? What history was obtained from this source @ -No Did you review nursing and triage notes (agree or disagree)? Why? @ -I reviewed and agree with nursing and triage notes Were old charts reviewed (outside hosp., previous admission, EMS record, old EKG, old radiological studies, urgent care reports/EKG's, senior living records)? Report findings @ -No old charts were reviewed Differential Diagnosis (chest pain, altered mental status, abdominal pain women, abdominal pain men, vaginal bleeding, weakness, fever, dyspnea, syncope, headache, dizziness, GI bleed, back pain, seizure, CVA, palpatations, mental health, musculoskeletal)? @ -[Differential Syncope: Valvular disease, hypertrophic cardiomyopathy, pulmonary embolism, tamponade, tachycardia, bradycardia, DC, hypovolemia, hemorrhage, dissection, anemia, intracranial hemorrhage, seizure, hypoglycemia, carbon monoxide poisoning, this is not meant to be an all-inclusive list. EKG interpreted by me (3pts min.). @Sinus rhythm rate of 84, normal MO interval, QRS duration 73, QTC 406, no ST segment elevation, low voltage. X-rays interpreted by me (1pt min.). @ -Chest x-ray negative for aspiration or acute findings CT interpreted by me (1pt min.). @ -None done U/S interpreted by me (1pt. min.). @ -None done What testing was considered but not performed or refused? (CT, X-rays, U/S, labs)? Why? @ -None What meds were considered but not given or refused? Why? @ -None Did you discuss the management of the patient with other professionals (professionals i.e. AMY Mabry, [employer], lab, RT, psych nurse, foster care social worker, hydroelectric station operator, teacher, senior credit officer, case reviewer)? Give summary @ -No Was smoking cessation discussed for >3mins.? @ -No Was critical care preformed (if so, how long)? @ -No Were there social determinants of health that impacted care today? How? (Homelessness, low income, unemployed, alcoholism, drug addiction, transport ation, low edu. Level, literacy, decrease access to med. care, longterm, rehab)? @ -No Was there de-escalation of care discussed even if they declined (Discuss DNR or withdrawal of care, Hospice)? DNR status @ -No What co-morbidities impacted this encounter? (DM, HTN, Smoking, COPD, CAD, Cancer, CVA, ARF, Chemo, Hep., AIDS, mental health diagnosis, sleep apnea, morbid obesity)? @ -Dementia, nonambulatory Was patient admitted / discharged? Hospital course, mention meds given and route, prescriptions, significant lab abnormalities, going to OR and other pertinent info. @ -82-year-old female with advanced dementia presenting with a brief episode of unresponsiveness, likely syncopal episode. Patient was recently on hospice. I did discuss the goals of care with the family, offered further testing couldn't laboratory testing, urinalysis. At this point they were comfortable with chest x-ray and evaluation the emergency department. Patient has stable vitals. She is in sinus rhythm. She's had her baseline, again family was offered further testing. Undiagnosed new problem with uncertain prognosis? @ -No Drug Therapy requiring intensive monitoring for toxicity (Heparin, Nitro, Insulin, Cardizem)? @ -No Were any procedures done? @ -No Diagnosis/symptom? @ -[Syncope Acute, or Chronic, or Acute on Chronic? @ Acute Uncomplicated (without systemic symptoms) or Complicated (systemic symptoms)? @ -Complicated Side effects of treatment? @ -No Exacerbation, Progression, or Severe Exacerbation? @ -No Poses a threat to life or bodily function? How? (Chest pain, USA, DC, pneumonia, PE, COPD, DKA, ARF, appy, cholecystitis, CVA, Diverticulitis, Homicidal, Suicidal, threat to staff... and all critical care pts) @ -[Yes, arrhythmia, syncope Disposition Clinical Impression: Syncope Disposition: HOME SELF-CARE Condition: Fair Instructions (If sedation given, give patient instructions): Syncope (ED) Additional Instructions: Please discontinue the Tylenol #3 and use regular Tylenol for pain. Is patient prescribed a controlled substance at d/c from ED?: No Referrals: Cale Chavira MD [Primary Care Provider] - 1-2 days Time of Disposition: 00:30
--- NOTE | 2022-12-01 23:45 | XR ---
EXAM: XR Chest, 1 View CLINICAL HISTORY: ITS.REASON XR Reason: syncope TECHNIQUE: Frontal view of the chest. COMPARISON: No relevant prior studies available. FINDINGS: Lungs: Low lung volumes, secondary to poor inspiration. Pleural space: Unremarkable. No pneumothorax. Heart: Cardiomegaly. Mediastinum: Unremarkable. Bones/joints: Unremarkable. IMPRESSION: No acute findings in the chest.
== END 2022-12-02 01:16 | disposition home or self-care (01) ==
LOC: EC 22:30
DX: R55 Syncope and collapse (principal); Z88.0 Allergy status to penicillin
CPT/HCPCS: 71045; 93005; 99284

== ENCOUNTER 2022-12-02 14:04 | Emergency (ER) | payer MEDICARE, OTHER ==
[2022-12-02 14:40] VITALS: TEMP 98
--- NOTE | 2022-12-02 15:45 | CT ---
EXAMINATION TYPE: CT brain wo con DATE OF EXAM: 12/02/2022 COMPARISON: 11/29/2022. HISTORY: Fall with altered mental status. CT DLP: 1053.4 mGycm Automated exposure control for dose reduction was used. FINDINGS: There is no acute intracranial hemorrhage, mass, mass effect, midline shift, extra-axial fluid collec tions or hydrocephalus. There is mild diffuse cerebral and cerebellar atrophy which is likely age-related. There is moderate hypoattenuation the periventricular, subcortical and deep white matter which likely relates to chroni c ischemic small vessel change. There is no acute major vessel infarct is seen at this time. The visualized paranasal sinuses and mastoid air cells are clear. IMPRESSION: CHRONIC CHANGES WITH NO ACUTE INTRACRANIAL PROCESS IDENTIFIED. NO SIGNIFICANT CHANGE FROM PRIOR.
--- NOTE | 2022-12-02 15:47 | ED ---
Fall HPI - General Chief Complaint: Fall Stated Complaint: UNRESPONSIVE Time Seen by Provider: 12/02/22 14:22 Source: family Mode of arrival: ambulatory Limitations: altered mental status - History of Present Illness Initial Comments: Patient is an 82-year-old female presenting to the ER accompanied by her sons with a chief complaint of altered mental status. The past medical history significant for Alzheimer's dementia. Patient was seen here in the ER on 11/29/22 after falling and diagnosed with a fractured nasal bone. Patient was discharged to [facility] in stable condition. Since then she return to the ER last night 11/30/22 for altered mental status. Per her son, patient had an episode of nodding out and turning pale while eating. They worried she may have choked on her food from the incident and brought her back to the ER for further evaluation. In the ER on 11/30/22 patient received a chest x-ray was negative. Patient was discharged back to [facility] in stable condition. Per son, patient has continued bouts of altered mental status and nodding in and out. They would like to have a repeat computed tomography scan to make sure nothing has changed. Her son states that she is normally up walking around and has not done so since her fall. Patient was hospice prior to fall on 11/29/22 but was removed from hospice to receive medical care. Her sons would not like to continue with hospice care at this time. - Related Data Home Medications Medication Instructions Recorded Confirmed Donepezil [Aricept] 10 mg PO DAILY 07/08/16 07/26/22 Acetaminophen [Tylenol 8 Hour] 650 mg PO Q4H PRN 09/09/19 07/26/22 metFORMIN HCL ER [Glucophage XR] 500 mg PO DAILY 09/09/19 07/26/22 Ferrous Sulfate [Iron (65 MG 325 mg PO DAILY 11/25/20 07/26/22 Elemental)] Loratadine 10 mg PO DAILY 11/25/20 07/26/22 QUEtiapine [SEROquel] 50 mg PO HS 11/25/20 07/26/22 ALPRAZolam [Xanax] 0.5 mg PO BID@1300,2100 07/28/21 07/26/22 Apixaban [Eliquis] 5 mg PO Q12H 07/28/21 07/26/22 Atorvastatin [Lipitor] 10 mg PO HS 07/28/21 07/26/22 Cholecalciferol [Vitamin D3 (25 50 mcg PO DAILY 07/28/21 07/26/22 Mcg = 1000 Iu)] Oxymetazoline 0.05% Nasl [place] 1 spray EA NOSTRIL Q15M PRN 07/28/21 07/26/22 [Afrin 0.05% Nasal [place]] QUEtiapine FUMARATE [SEROquel] 25 mg PO DAILY 07/28/21 07/26/22 Acetaminophen Tab [Tylenol] 650 mg PO BID 07/26/22 07/26/22 Ascorbic Acid [Vitamin C] 500 mg PO DAILY 07/26/22 07/26/22 Ocusoft Dry Eye Kit 1 applic BOTH EYES DAILY@0600 07/26/22 07/26/22 Zinc Gluconate [Zinc] 50 mg PO DAILY 07/26/22 07/26/22 Previous Rx's Medication Instructions Recorded cefUROXime axetiL [Ceftin] 500 mg PO BID 7 Days #14 tab 11/29/22 Allergies Allergy/AdvReac Type Severity Reaction Status Date / Time Penicillins Allergy Unknown Verified 12/02/22 14:21 Childhood Review of Systems ROS Statement: Those systems with pertinent positive or pertinent negative responses have been documented in the HPI. ROS Other: All systems not noted in ROS Statement are negative. Past Medical History Past Medical History: Dementia, Diabetes Mellitus Additional Past Medical History / Comment(s): Alzheimer's, nonverbal History of Any Multi-Drug Resistant Organisms: None Reported Past Surgical History: Joint Replacement Additional Past Surgical History / Comment(s): bilateral knee replacement Past Anesthesia/Blood Transfusion Reactions: No Reported Reaction Past Psychological History: No Psychological Hx Reported Smoking Status: Never smoker Past Alcohol Use History: None Reported Past Drug Use History: None Reported - Past Family History Father History Unknown: Yes Mother History Unknown: Yes General Exam Limitations: no limitations General appearance: other (A & O x1) Head exam: Present: atraumatic, normocephalic, normal inspection Eye exam: Present: PERRL, other (Ecchymosis noted over bilateral eyes and nasal bridge) Respiratory exam: Present: normal lung sounds bilaterally. Absent: respiratory distress, wheezes, rales, rhonchi, stridor Cardiovascular Exam: Present: regular rate, normal rhythm, normal heart sounds. Absent: systolic murmur, diastolic murmur, rubs, gallop, clicks GI/Abdominal exam: Present: soft, normal bowel sounds. Absent: distended, tenderness, guarding, rebound, rigid Skin exam: Present: warm, dry, intact, normal color. Absent: rash Course Vital Signs 12/02/22 14:13 Temperature 98.0 F Pulse Rate 94 Respiratory 16 Rate Blood Pressure 104/74 O2 Sat by Pulse 96 Oximetry Medical Decision Making - Medical Decision Making Was pt. sent in by a medical professional or institution (, PA, [employer], urgent care, hospital, or usp...) When possible be specific @ -No Did you speak to anyone other than the patient for history (EMS, parent, family, police, friend...)? What history was obtained from this source @ -Sons Did you review nursing and triage notes (agree or disagree)? Why? @ -I reviewed and agree with nursing and triage notes Were old charts reviewed (outside hosp., previous admission, EMS record, old EKG, old radiological studies, urgent care reports/EKG's, usp records)? Report findings @ -Yes old charts were reviewed from 11/29/22 and 12/01/22. Prior head CT from 11/29/22 significant for nasal bone fracture. No acute intracranial hemorrhage or mass effect noted./ Differential Diagnosis (chest pain, altered mental/ st/atus, abdominal pain women, abdominal pain men, vaginal bleeding, weakness, fever, dyspnea, syncope, headache, dizziness, GI bleed, back pain/, seizure, CVA, palpatations, mental h ealth, musculoskeletal)? @ Differential Syncope: Valvular disease, hypertrophic cardiomyopathy, pulmonary embolism, tamponade, tachycardia, bradycardia, ID, hypovolemia, hemorrhage, dissection, anemia, intracranial hemorrhage, seizure, hypoglycemia, carbon monoxide poisoning, this is not meant to be an all-inclusive list. EKG interpreted by me (3pts min.). @ - none] X-rays interpreted by me (1pt min.). @ -None done CT interpreted by me (1pt min.). @ - CT of the brain shows no acute intracranial processes or significant change from prior scans.. U/S interpreted by me (1pt. min.). @ -None done What testing was considered but not performed or refused? (CT, X-rays, U/S, labs)? Why? @ -None What meds were considered but not given or refused? Why? @ -None Did you discuss the management of the patient with other professionals (professionals i.e. , PA, [employer] DISTRIBUTOR, lab, RT, psych nurse, social media specialist, inclusion special education teacher, teacher, school services officer, bilingual case manager)? Give summary @ -No Was smoking cessation discussed for >3mins.? @ -No Was critical care preformed (if so, how long)? @ -No Were there social determinants of health that impacted care today? How? (Homelessness, low income, unemployed, alcoholism, drug addiction, transpo rtation, low edu. Level, literacy, decrease access to med. care, nursing home, rehab)? @ -No Was there de-escalation of care discussed even if they declined (Discuss DNR or withdrawal of care, Hospice)? DNR status @ -Yes, hospice care was discussed. manager metrology was contacted. What co-morbidities impacted this encounter? (DM, HTN, Smoking, COPD, CAD, Cancer, CVA, ARF, Chemo, Hep., AIDS, mental health diagnosis, sleep apnea, morbid obesity)? @ -None Was patient admitted / discharged? Hospital course, mention meds given and route, prescriptions, significant lab abnormalities, going to OR and other pertinent info. @ -Discharged. Patient is an 82-year-old female with a past medical history significant for Alzheimer's dementia presenting to the ER accompanied with her sons with a chief complaint of syncopal episodes. CT of the brain shows no acute intracranial processes or significant change from prior scans. manager metrology contacted [facility] to coordinate next steps and spoke with family. They are interested in restarting hospice and are willing to meet with them next week. Patient will be discharged in stable condition. Family verbally agrees with plan and was given hospice contact information. They will contact hospice and set patient up with further care. Undiagnosed new problem with uncertain prognosis? @ -No Drug Therapy requiring intensive monitoring for toxicity (Heparin, Nitro, Insulin, Cardizem)? @ -No Were any procedures done? @ -No Diagnosis/symptom? @ -Alzheimer's dementia/Syncopal episode Acute, or Chronic, or Acute on Chronic? @ -Acute Uncomplicated (without systemic symptoms) or Complicated (systemic symptoms)? @ -Uncomplicated Side effects of treatment? @ -No Exacerbation, Progression, or Severe Exacerbation? @ -No Poses a threat to life or bodily function? How? (Chest pain, USA, ID, pneumonia, PE, COPD, DKA, ARF, appy, cholecystitis, CVA, Diverticulitis, Homicidal, Suicidal, threat to staff... and all critical care pts) @ -No - Radiology Data Radiology results: report reviewed, image reviewed Disposition Clinical Impression: Alzheimer's dementia Disposition: HOME SELF-CARE Condition: Stable Additional Instructions: Please return to the Emergency Department if symptoms worsen or any other concerns. Please follow-up with hospice agency for continued care Is patient prescribed a controlled substance at d/c from ED?: No Referrals: Cale Chavira MD [Primary Care Provider] - 1-2 days Time of Disposition: 16:23
[2022-12-02 17:02] VITALS: BP 110/70; PULSE 90; RESP 18
== END 2022-12-02 18:40 | disposition home or self-care (01) ==
LOC: EC 14:04
DX: S00.12XA Contusion of left eyelid and periocular area, initial encounter (principal); S00.11XA Contusion of right eyelid and periocular area, initial encounter; S00.33XA Contusion of nose, initial encounter; G30.9 Alzheimer's disease, unspecified; F02.80 Dementia in other diseases classified elsewhere, unspecified severity, without behavioral disturbance, psychotic disturbance, mood disturbance, and anxiety; E11.9 Type 2 diabetes mellitus without complications; Z79.84 Long term (current) use of oral hypoglycemic drugs; Z79.4 Long term (current) use of insulin; Z88.0 Allergy status to penicillin; W19.XXXA Unspecified fall, initial encounter
CPT/HCPCS: 70450; 99284